=== PATIENT | female | born 1955 | race Caucasian/White ===

== ENCOUNTER → 2016-06-21 | Outpatient (CLI) | payer MEDICARE, MEDICAID ==
--- NOTE | 2016-06-21 12:22 | REPMRS ---
Patient History The patient states she had a clinical breast exam in Patient is postmenopausal. No known family history of cancer. Digital Woman Screen Mammo: June 21, 2016 - Exam #: [id number] Bilateral CC and MLO view(s) were taken. Technologist: Carolina Jensen, Technologist Prior study comparison: March 22, 2015, digital woman screen mammo performed at [facility] to [facility]. March 20, 2014, digital woman screen mammo performed at [facility] to [facility]. FINDINGS: There are scattered fibroglandular densities. There has been no change in the appearance of the mammogram from the prior studies. There is a mild amount of residual fibroglandular tissue which is fairly symmetric. There is no interval development of dominant mass, architectural distortion, or clustered microcalcification suggestive of malignancy. ASSESSMENT: BI-RADS/ACR category 1 mammogram. Negative. Recommendation Routine screening mammogram in 1 year (for women over age 40). This mammogram was interpreted with the aid of an FDA-approved computer-aided dectection system. Electronically Signed By: Enzo Reis MD 06/21/16 [id number]
== END ==
LOC: M WHC 10:34
PROVIDERS: ATTEND Nurse Practitioner Family
DX: Z12.31 Encounter for screening mammogram for malignant neoplasm of breast (principal); Z78.0 Asymptomatic menopausal state; Z12.11 Encounter for screening for malignant neoplasm of colon; Z12.4 Encounter for screening for malignant neoplasm of cervix
CPT/HCPCS: 82270; G0101; G0202

== ENCOUNTER 2016-11-28 09:04 | Outpatient (REF) | payer MEDICARE, MEDICAID | END 2016-11-29 | LOC: CANPREREF → M SFHCPLAZ 09:04 | PROVIDERS: ATTEND Family Medicine | DX: D64.9 Anemia, unspecified (principal); E78.5 Hyperlipidemia, unspecified ==

== ENCOUNTER → 2016-11-28 | Outpatient (REF) | payer MEDICARE, MEDICAID ==
[2016-11-30 10:12] LABS: TOPIRAMATE LEVEL 3.1 ug/mL (2.0-25.0)
== END ==
LOC: M LABDRAWP 12:06
PROVIDERS: ATTEND Physician Assistant Medical
DX: Z51.81 Encounter for therapeutic drug level monitoring (principal); Z79.899 Other long term (current) drug therapy; R56.9 Unspecified convulsions
CPT/HCPCS: 80175; 80299; G0463

== ENCOUNTER → 2017-05-30 | Outpatient (REF) | payer MEDICARE, MEDICAID | LOC: M SFHCADAM 09:29 | DX: F78 Other intellectual disabilities (principal); E78.5 Hyperlipidemia, unspecified; T50.905S Adverse effect of unspecified drugs, medicaments and biological substances, sequela; Z53.8 Procedure and treatment not carried out for other reasons ==

== ENCOUNTER → 2017-05-30 | Outpatient (CLI) | payer MEDICARE, MEDICAID | LOC: M ADAMS 09:36 | DX: M17.11 Unilateral primary osteoarthritis, right knee (principal) | CPT/HCPCS: 73560 ==

== ENCOUNTER → 2017-06-15 | Outpatient (CLI) | payer MEDICARE, MEDICAID ==
[2017-06-15 11:14] LABS: HEMATOCRIT 38.6 % (36.0-47.0); HEMOGLOBIN 12.6 g/dl (12.0-16.0); MEAN CORPUSCULAR HEMOGLOBIN 31.3 pg (27.0-33.0); MEAN CORPUSCULAR HGB CONC 32.6 g/dl (32.0-36.5); MEAN CORPUSCULAR VOLUME 95.8 fl (80.0-96.0); PLATELET COUNT, AUTOMATED 218 10^3/uL (150-450); RED BLOOD COUNT 4.03 10^6/uL (4.00-5.40); RED CELL DISTRIBUTION WIDTH 12.4 % (11.5-14.5); WHITE BLOOD COUNT 6.2 10^3/uL (4.0-10.0)
[2017-06-15 11:45] LABS: ALBUMIN/GLOBULIN RATIO 1.18 (1.00-1.93); ALKALINE PHOSPHATASE 104 U/L (45-117); ALT/SGPT 25 U/L (12-78); ANION GAP 6 MEQ/L (8-16); AST/SGOT 19 U/L (7-37); BILIRUBIN,TOTAL 0.7 MG/DL (0.2-1.0); BLOOD UREA NITROGEN 17 MG/DL (7-18); CALCIUM LEVEL 9.2 MG/DL (8.5-10.1); CARBON DIOXIDE LEVEL 30 MEQ/L (21-32); CHLORIDE LEVEL 106 MEQ/L (98-107); CHOLESTEROL LEVEL 181 MG/DL (<200); CHOLESTEROL RISK RATIO 3.067 (<5); CREATININE FOR GFR 0.67 MG/DL (0.55-1.30); FREE T4 0.93 NG/DL (0.76-1.46); GLOMERULAR FILTRATION RATE > 60.0 (>51); GLUCOSE, FASTING 83 MG/DL (70-100); HDL CHOLESTEROL 59 MG/DL (>40); LDL CHOLESTEROL 109.8 MG/DL (<100); NON-HDL-C 122 MG/DL; POTASSIUM SERUM 4.2 MEQ/L (3.5-5.1); SODIUM LEVEL 142 MEQ/L (136-145); TOTAL PROTEIN 7.4 GM/DL (6.4-8.2); TRIGLYCERIDES LEVEL 61 MG/DL (<150)
[2017-06-15 12:23] LABS: TOTAL 25(OH) VITAMIN D 45.4 NG/ML (30.0-100.0)
== END ==
LOC: M LAB 10:13
DX: F78 Other intellectual disabilities (principal); E78.5 Hyperlipidemia, unspecified; T50.905S Adverse effect of unspecified drugs, medicaments and biological substances, sequela; Z51.81 Encounter for therapeutic drug level monitoring; Z79.899 Other long term (current) drug therapy; R56.9 Unspecified convulsions
CPT/HCPCS: 84443

== ENCOUNTER → 2017-06-15 | Outpatient (CLI) | payer MEDICARE, MEDICAID ==
[2017-06-19 00:06] LABS: LAMOTRIGINE (LAMICTAL) 7.5 ug/mL (2.0-20.0)
== END ==
LOC: M LAB 10:16
DX: Z51.81 Encounter for therapeutic drug level monitoring (principal); Z79.899 Other long term (current) drug therapy; R56.9 Unspecified convulsions

== ENCOUNTER 2017-06-20 06:29 | Emergency (ER) | payer MEDICARE, MEDICAID ==
[2017-06-20] MEDS: ACETAMINOPHEN TAB 650MG DOSE (2X325MG) PO (07:43)
== END 2017-06-20 09:36 | disposition home or self-care (01) ==
LOC: M ED 06:29
DX: S70.02XA Contusion of left hip, initial encounter (principal); W18.30XA Fall on same level, unspecified, initial encounter; Y92.198 Other place in other specified residential institution as the place of occurrence of the external cause; R56.9 Unspecified convulsions; M19.90 Unspecified osteoarthritis, unspecified site; Z79.899 Other long term (current) drug therapy; Z91.018 Allergy to other foods
CPT/HCPCS: 73502

== ENCOUNTER 2017-07-16 08:38 | Outpatient (RCR) | payer MEDICARE, MEDICAID | END 2017-08-04 | LOC: M PT 08:38 | DX: Z51.89 Encounter for other specified aftercare (principal); M79.604 Pain in right leg; M25.561 Pain in right knee | CPT/HCPCS: 97110 ==

== ENCOUNTER → 2017-11-15 | Outpatient (REF) | payer MEDICARE, MEDICAID ==
[2017-11-23 13:33] LABS: LAMOTRIGINE (LAMICTAL) 17.9 ug/mL (2.0-20.0)
[2017-11-23 13:33] LABS: TOPIRAMATE LEVEL 3.5 ug/mL (2.0-25.0)
== END ==
LOC: M LABNEURO 14:07
DX: G40.909 Epilepsy, unspecified, not intractable, without status epilepticus (principal)
CPT/HCPCS: 36415

== ENCOUNTER → 2017-12-28 | Outpatient (CLI) | payer MEDICARE, MEDICAID | LOC: M WHC 10:22 | DX: Z12.31 Encounter for screening mammogram for malignant neoplasm of breast (principal) | CPT/HCPCS: 77067 ==

== ENCOUNTER → 2018-02-07 | Outpatient (CLI) | payer MEDICARE, MEDICAID ==
[2018-02-07 12:24] LABS: BASO # 0.1 10^3/uL (0.0-0.2); BASO % 0.7 % (0.0-1.0); EOS # 0.2 10^3/uL (0.0-0.50); EOS % 3.3 % (0.0-3.0); HEMATOCRIT 39.7 % (36.0-47.0); HEMOGLOBIN 12.8 g/dl (12.0-15.5); IMMATURE GRANULOCYTE % 0.3 % (0-3.0); LYMPH % 29.9 % (24.0-44.0); MEAN CORPUSCULAR HGB CONC 32.2 g/dl (32.0-36.5); MEAN CORPUSCULAR VOLUME 96.1 fl (80.0-96.0); MONO # 0.4 10^3/uL (0.0-0.8); MONO % 6.5 % (0.0-5.0); NEUTROPHILS % 59.3 % (36.0-66.0); PLATELET COUNT, AUTOMATED 222 10^3/uL (150-450); RED BLOOD COUNT 4.13 10^6/uL (4.00-5.40); RED CELL DISTRIBUTION WIDTH 12.6 % (11.5-14.5); WHITE BLOOD COUNT 6.8 10^3/uL (4.0-10.0)
[2018-02-07 14:09] LABS: ALBUMIN 3.9 GM/DL (3.2-5.2); ALBUMIN/GLOBULIN RATIO 1.08 (1.00-1.93); ALKALINE PHOSPHATASE 99 U/L (45-117); ALT/SGPT 17 U/L (12-78); ANION GAP 8 MEQ/L (8-16); AST/SGOT 11 U/L (7-37); BILIRUBIN,TOTAL 0.4 MG/DL (0.2-1.0); BLOOD UREA NITROGEN 24 MG/DL (7-18); CALCIUM LEVEL 9.3 MG/DL (8.8-10.2); CARBON DIOXIDE LEVEL 29 MEQ/L (21-32); CHLORIDE LEVEL 105 MEQ/L (98-107); CREATININE FOR GFR 0.67 MG/DL (0.55-1.30); GLOMERULAR FILTRATION RATE > 60.0 (>45); GLUCOSE, FASTING 82 MG/DL (70-100); POTASSIUM SERUM 4.5 MEQ/L (3.5-5.1); SODIUM LEVEL 142 MEQ/L (136-145); TOTAL PROTEIN 7.5 GM/DL (6.4-8.2); URIC ACID 4.7 MG/DL (2.6-6.0)
== END ==
LOC: M WUC 09:54
DX: M79.672 Pain in left foot (principal)
CPT/HCPCS: 84550

== ENCOUNTER → 2018-05-25 | Outpatient (CLI) | payer MEDICARE, MEDICAID ==
[~2018-05-25] MED LIST: CALTCHW4 PO; COLA100C5 PO; FERR325T3 PO; LAMO200T2 PO; MULT1TAB10 PO; NYST1POW9 TOP; TOPI50TA9 PO; VITA-122 PO; VITA500T88 PO
== END ==
LOC: M WUC 08:00
PROVIDERS: ATTEND Physician Assistant Medical
DX: R56.9 Unspecified convulsions (principal); Z51.81 Encounter for therapeutic drug level monitoring; Z79.899 Other long term (current) drug therapy; Z53.8 Procedure and treatment not carried out for other reasons

== ENCOUNTER → 2018-05-28 | Outpatient (CLI) | payer MEDICARE, MEDICAID ==
[2018-05-30 11:03] LABS: LAMOTRIGINE (LAMICTAL) 9.5 ug/mL (2.0-20.0); TOPIRAMATE LEVEL 3.6 ug/mL (2.0-25.0)
== END ==
LOC: M LAB 09:59
PROVIDERS: ATTEND Physician Assistant Medical
DX: R56.9 Unspecified convulsions (principal); Z51.81 Encounter for therapeutic drug level monitoring; Z79.899 Other long term (current) drug therapy

== ENCOUNTER → 2018-06-13 | Outpatient (REF) | payer MEDICARE, MEDICAID ==
[2018-06-13 13:01] LABS: HEMATOCRIT 41.3 % (36.0-47.0); HEMOGLOBIN 13.3 g/dl (12.0-15.5); MEAN CORPUSCULAR HEMOGLOBIN 31.2 pg (27.0-33.0); MEAN CORPUSCULAR HGB CONC 32.2 g/dl (32.0-36.5); MEAN CORPUSCULAR VOLUME 96.9 fl (80.0-96.0); PLATELET COUNT, AUTOMATED 219 10^3/uL (150-450); RED BLOOD COUNT 4.26 10^6/uL (4.00-5.40); WHITE BLOOD COUNT 6.8 10^3/uL (4.0-10.0)
[2018-06-13 13:40] LABS: ALT/SGPT 19 U/L (12-78); BILIRUBIN,TOTAL 0.4 MG/DL (0.2-1.0); BLOOD UREA NITROGEN 19 MG/DL (7-18); CALCIUM LEVEL 9.2 MG/DL (8.8-10.2); CARBON DIOXIDE LEVEL 26 MEQ/L (21-32); CHLORIDE LEVEL 107 MEQ/L (98-107); CHOLESTEROL LEVEL 200 MG/DL (<200); CHOLESTEROL RISK RATIO 3.773 (<5); CREATININE FOR GFR 0.66 MG/DL (0.55-1.30); FREE T4 0.87 NG/DL (0.76-1.46); GLOMERULAR FILTRATION RATE > 60.0 (>45); GLUCOSE, FASTING 87 MG/DL (70-100); HDL CHOLESTEROL 53 MG/DL (>40); LDL CHOLESTEROL 129 MG/DL (<100); NON-HDL-C 147 MG/DL; POTASSIUM SERUM 4.3 MEQ/L (3.5-5.1); SODIUM LEVEL 141 MEQ/L (136-145); TOTAL PROTEIN 7.5 GM/DL (6.4-8.2); TRIGLYCERIDES LEVEL 92 MG/DL (<150)
[2018-06-13 13:41] LABS: TOTAL 25(OH) VITAMIN D 41.8 NG/ML (30.0-100.0)
== END ==
LOC: M SFHCADAM 09:15
PROVIDERS: ATTEND Family Medicine
DX: E78.5 Hyperlipidemia, unspecified (principal); E55.9 Vitamin D deficiency, unspecified; Z79.899 Other long term (current) drug therapy
CPT/HCPCS: 80053; 80061; 82306; 84439; 84443; 85027; G0463

== ENCOUNTER → 2018-10-11 | Outpatient (CLI) | payer MEDICARE, MEDICAID ==
--- NOTE | 2018-10-11 14:20 | REP ---
REASON: Bilateral lower leg edema. PRIORS: None. ON THE RIGHT: No reflux was seen in the common femoral vein. An anterior accessory greater saphenous vein was not present. No reflux was seen in the greater saphenous vein at the saphenofemoral junction. The AP dimension of which measures 3.3 mm. No reflux was seen in any of the venous structures as follows. Greater saphenous vein at mid thigh the AP dimension of which 3.1 mm, greater saphenous vein at the knee the AP dimension of which measures 2.2 mm, all components of the superficial femoral vein, popliteal vein, and lesser saphenous vein the AP dimension of which measures 3.2 mm ON THE LEFT: No reflux was seen in the common femoral vein. An anterior accessory greater saphenous vein was present, however, no reflux was noted. No reflux was noted in any of the following venous structures; greater saphenous vein at the saphenofemoral function the AP dimension of which measures 4.2 mm, greater saphenous vein at the mid thigh the AP dimension of which measures 3.4 mm, greater saphenous vein at the knee the AP dimension of which measures 1.7 mm. All components of the superficial femoral vein, popliteal vein, and lesser saphenous vein the AP dimension of which measures 2.2 mm. IMPRESSION: No abnormal reflux noted. Measurements as described above. Electronically Signed by Michael Jenkins DO 10/11/2018 04:44 P
== END ==
LOC: M RAD 10:42
PROVIDERS: ATTEND Family Medicine
DX: R60.0 Localized edema (principal)

== ENCOUNTER → 2018-11-18 | Outpatient (REF) | payer MEDICARE, MEDICAID ==
[2018-11-20 00:06] LABS: LAMOTRIGINE (LAMICTAL) 9.9 ug/mL (2.0-20.0); TOPIRAMATE LEVEL 3.8 ug/mL (2.0-25.0)
== END ==
LOC: M LABNEURO 10:34
PROVIDERS: ATTEND Physician Assistant Medical
DX: R56.9 Unspecified convulsions (principal)

== ENCOUNTER → 2019-02-28 | Outpatient (CLI) | payer MEDICARE, MEDICAID ==
[2019-02-28 11:28] LABS: ALBUMIN 3.6 GM/DL (3.2-5.2); ALT/SGPT 16 U/L (12-78); BILIRUBIN,TOTAL 0.4 MG/DL (0.2-1.0); BLOOD UREA NITROGEN 19 MG/DL (7-18); CALCIUM LEVEL 9.2 MG/DL (8.8-10.2); CARBON DIOXIDE LEVEL 26 MEQ/L (21-32); CHLORIDE LEVEL 108 MEQ/L (98-107); CREATININE FOR GFR 0.75 MG/DL (0.55-1.30); GLOMERULAR FILTRATION RATE > 60.0 (>45); GLUCOSE, FASTING 102 MG/DL (70-100); NT-PRO BNP 77 PG/ML (<125); POTASSIUM SERUM 4.7 MEQ/L (3.5-5.1); SODIUM LEVEL 141 MEQ/L (136-145); TOTAL PROTEIN 7.6 GM/DL (6.4-8.2)
== END ==
LOC: M LAB 10:08
PROVIDERS: ATTEND Family Medicine
DX: I10 Essential (primary) hypertension (principal)

== ENCOUNTER → 2019-05-05 | Outpatient (CLI) | payer MEDICARE, MEDICAID ==
[~2019-05-05] MED LIST changes: -LAMO200T2 PO; +LAMO200T3 PO
--- NOTE | 2019-05-05 17:04 | REP ---
Two-view chest: 05/05/2019. Indication: Cough. Comparison: 04/01/2009. Findings: Poor inspiratory result is present. Borderline cardiomegaly is noted. Significant degenerative sequelae of the thoracic spine are present. No definite focal airspace consolidation is detected. There is no definite pleural effusion or pneumothorax. Bilateral glenohumeral degenerative sequelae are present. Impression: Poor inspiratory result without definite air space consolidation. Electronically Signed by Eliazar Yeager DO 05/05/2019 04:55 P
== END ==
LOC: M ADAMS 16:30
PROVIDERS: ATTEND Physician Assistant Medical
DX: M51.34 Other intervertebral disc degeneration, thoracic region (principal); R05 Cough
CPT/HCPCS: 71046; G0463

== ENCOUNTER → 2019-06-28 | Outpatient (CLI) | payer MEDICARE, MEDICAID ==
[2019-06-28 09:36] LABS: HEMATOCRIT 38.4 % (36.0-47.0); HEMOGLOBIN 12.5 g/dl (12.0-15.5); MEAN CORPUSCULAR HEMOGLOBIN 31.6 pg (27.0-33.0); MEAN CORPUSCULAR HGB CONC 32.6 g/dl (32.0-36.5); PLATELET COUNT, AUTOMATED 222 10^3/uL (150-450); RED BLOOD COUNT 3.96 10^6/uL (4.00-5.40); WHITE BLOOD COUNT 6.1 10^3/uL (4.0-10.0)
[2019-06-28 10:23] LABS: ALBUMIN 3.9 GM/DL (3.2-5.2); ALT/SGPT 21 U/L (12-78); BILIRUBIN,TOTAL 0.3 MG/DL (0.2-1.0); BLOOD UREA NITROGEN 18 MG/DL (7-18); CALCIUM LEVEL 9.4 MG/DL (8.8-10.2); CARBON DIOXIDE LEVEL 28 MEQ/L (21-32); CHLORIDE LEVEL 108 MEQ/L (98-107); CHOLESTEROL LEVEL 198 MG/DL (<200); CHOLESTEROL RISK RATIO 3.473 (<5); CREATININE FOR GFR 0.67 MG/DL (0.55-1.30); GLOMERULAR FILTRATION RATE > 60.0 (>45); GLUCOSE, FASTING 84 MG/DL (70-100); HDL CHOLESTEROL 57 MG/DL (>40); IRON (FE) 55 UG/DL (50-170); LDL CHOLESTEROL 127 MG/DL (<100); NON-HDL-C 141 MG/DL; PERCENT SATURATION 18.5 % (13.2-45.0); POTASSIUM SERUM 4.2 MEQ/L (3.5-5.1); SODIUM LEVEL 140 MEQ/L (136-145); TOTAL IRON BINDING CAPACITY 298 UG/DL (250-450); TOTAL PROTEIN 7.4 GM/DL (6.4-8.2); TRIGLYCERIDES LEVEL 70 MG/DL (<150)
[2019-06-28 10:48] LABS: FERRITIN 137 NG/ML (8-252)
== END ==
LOC: M LAB 08:57
PROVIDERS: ATTEND Family Medicine
DX: I11.9 Hypertensive heart disease without heart failure (principal); R21 Rash and other nonspecific skin eruption; D50.9 Iron deficiency anemia, unspecified; E78.5 Hyperlipidemia, unspecified

== ENCOUNTER → 2019-11-14 | Outpatient (CLI) | payer MEDICARE, MEDICAID ==
[2019-11-19 16:22] LABS: LAMOTRIGINE (LAMICTAL) 11.8 ug/mL (2.0-20.0); TOPIRAMATE LEVEL 3.7 ug/mL (2.0-25.0)
== END ==
LOC: M WUC 13:34
PROVIDERS: ATTEND Physician Assistant Medical
DX: G40.89 Other seizures (principal)

== ENCOUNTER → 2020-06-26 | Outpatient (CLI) | payer MEDICARE, MEDICAID ==
[2020-06-26 14:53] LABS: BASO % 0.7 % (0.0-1.0); EOS # 0.3 10^3/uL (0.0-0.5); EOS % 4.2 % (0.0-3.0); HEMATOCRIT 38.5 % (36.0-47.0); HEMOGLOBIN 11.9 g/dl (12.0-15.5); LYMPH # 1.9 10^3/uL (1.5-5.0); LYMPH % 30.6 % (24.0-44.0); MEAN CORPUSCULAR HEMOGLOBIN 30.1 pg (27.0-33.0); MEAN CORPUSCULAR HGB CONC 30.9 g/dl (32.0-36.5); MEAN CORPUSCULAR VOLUME 97.2 fl (80.0-96.0); MONO # 0.4 10^3/uL (0.0-0.8); MONO % 6.5 % (2.0-8.0); NEUTROPHILS # 3.6 10^3/uL (1.5-8.5); NEUTROPHILS % 57.8 % (36.0-66.0); PLATELET COUNT, AUTOMATED 193 10^3/uL (150-450); RED BLOOD COUNT 3.96 10^6/uL (4.00-5.40); WHITE BLOOD COUNT 6.2 10^3/uL (4.0-10.0)
[2020-06-26 15:22] LABS: ALBUMIN 3.6 GM/DL (3.2-5.2); ALT/SGPT 18 U/L (12-78); BILIRUBIN,TOTAL 0.2 MG/DL (0.2-1.0); BLOOD UREA NITROGEN 17 MG/DL (7-18); CALCIUM LEVEL 8.8 MG/DL (8.8-10.2); CARBON DIOXIDE LEVEL 28 MEQ/L (21-32); CHLORIDE LEVEL 107 MEQ/L (98-107); CREATININE FOR GFR 0.69 MG/DL (0.55-1.30); GLOMERULAR FILTRATION RATE > 60.0 (>45); GLUCOSE, FASTING 95 MG/DL (70-100); POTASSIUM SERUM 4.7 MEQ/L (3.5-5.1); SODIUM LEVEL 143 MEQ/L (136-145); TOTAL PROTEIN 7.5 GM/DL (6.4-8.2)
== END ==
LOC: M LAB 14:02
PROVIDERS: ATTEND Physician Assistant Medical
DX: Z51.81 Encounter for therapeutic drug level monitoring (principal); R56.9 Unspecified convulsions; Z79.899 Other long term (current) drug therapy

== ENCOUNTER 2020-10-26 19:37 | Inpatient (IN) | payer MEDICARE, MEDICAID ==
[~2020-10-26] VITALS: Ht 149.9 cm; Wt 102.2 kg
[2020-10-26 20:45] LABS: HEMATOCRIT 36.5 % (36.0-47.0); HEMOGLOBIN 11.6 g/dl (12.0-15.5); MEAN CORPUSCULAR HEMOGLOBIN 30.4 pg (27.0-33.0); MEAN CORPUSCULAR HGB CONC 31.8 g/dl (32.0-36.5); MEAN CORPUSCULAR VOLUME 95.5 fl (80.0-96.0); PLATELET COUNT, AUTOMATED 180 10^3/uL (150-450); RED BLOOD COUNT 3.82 10^6/uL (4.00-5.40); WHITE BLOOD COUNT 9.8 10^3/uL (4.0-10.0)
[2020-10-26] MEDS ORDERED: NS 1,000 ML IV ONE (20:50)
[2020-10-26] MEDS ORDERED: ACETAMINOPHEN TAB 650MG DOSE (2X325MG) PO ONE (20:50)
[2020-10-26] MEDS ORDERED: IBUPROFEN 800 MG TAB PO ONE (20:55)
[2020-10-26 20:58] LABS: INR 0.95; PROTHROMBIN TIME 12.9 SECONDS (12.5-14.3)
[2020-10-26 20:59] LABS: PARTIAL THROMBOPLASTIN TIME 20.7 SECONDS (24.2-38.5)
[2020-10-26] MEDS ORDERED: NS 1,800 ML in IV 1 EA IV ONE (21:05)
--- NOTE | 2020-10-26 21:06 | REPVR ---
PROCEDURE INFORMATION: Exam: XR Chest Exam date and time: 10/26/2020 8:20 PM Age: 64 years old Clinical indication: Other: Sepsis; Additional info: Sepsis/shock TECHNIQUE: Imaging protocol: XR of the chest. Views: 1 view. COMPARISON: IA CHEST 2 VIEW 05/05/2019 4:19 PM FINDINGS: Lungs: Unremarkable. No consolidation. Pleural spaces: Unremarkable. No pleural effusion. No pneumothorax. Heart/Mediastinum: Unremarkable. No cardiomegaly. Bones/joints: The spine demonstrates moderate degenerative changes. Arthropathic changes both shoulder joints. IMPRESSION: No acute findings. Electronically signed by: Javier Dillard On 10/26/2020 21:06:23 PM
[2020-10-26 21:12] LABS: BASOPHILS 1 % (0-1); LYMPHOCYTES 4 % (16-44); MONOCYTES 4 % (0-5); NEUTROPHILS 90 % (28-66); PLATELET ESTIMATE NORMAL (NORMAL)
[2020-10-27 00:23] LABS: ALBUMIN 2.7 GM/DL (3.2-5.2); ALT/SGPT 11 U/L (12-78); AMYLASE 40 U/L (25-115); BILIRUBIN,DIRECT 0.1 MG/DL (0.0-0.2); BILIRUBIN,TOTAL 0.5 MG/DL (0.2-1.0); BLOOD UREA NITROGEN 31 MG/DL (7-18); C REACTIVE PROTEIN QUANTITATIV 9.76 MG/DL (0.00-0.30); CALCIUM LEVEL 8.5 MG/DL (8.8-10.2); CARBON DIOXIDE LEVEL 24 MEQ/L (21-32); CHLORIDE LEVEL 108 MEQ/L (98-107); CK-MB VALUE MASS < 1.0 NG/ML (<3.6); CPK CREATINE PHOSPHOKINASE 45 U/L (26-192); CREATININE FOR GFR 0.82 MG/DL (0.55-1.30); GLOMERULAR FILTRATION RATE > 60.0 (>45); GLUCOSE, FASTING 113 MG/DL (70-100); MB/CK RELATIVE INDEX 2.22 (< OR =4); POTASSIUM SERUM 3.8 MEQ/L (3.5-5.1); SODIUM LEVEL 139 MEQ/L (136-145); TOTAL PROTEIN 5.7 GM/DL (6.4-8.2); TROPONIN I < 0.02 NG/ML (< 0.10)
[2020-10-27] MEDS ORDERED: CIPROFLOXACIN 400 MG in IV 1 EA IV ONE (01:10)
--- NOTE | 2020-10-27 02:00 | REPVR ---
PROCEDURE INFORMATION: Exam: CT Abdomen And Pelvis Without Contrast Exam date and time: 10/27/2020 12:27 AM Age: 64 years old Clinical indication: Abdominal pain; Flank; Right; Additional info: UTI, right sided flank pain, eval for stone TECHNIQUE: Imaging protocol: Computed tomography of the abdomen and pelvis without contrast. Radiation optimization: All CT scans at this facility use at least one of these dose optimization techniques: automated exposure control; mA and/or kV adjustment per patient size (includes targeted exams where dose is matched to clinical indication); or iterative reconstruction. COMPARISON: 1. ME Hip,AP,LAT to include Pelvis 06/20/2017 7:19 AM 2. US PELVIC NON-OB COMPLETE 06/27/2015 10:49 PM FINDINGS: Lungs: Minimal patchy bilateral ground-glass pulmonary infiltrates and scattered fibro-atelectatic change. Liver: Normal. No mass. Gallbladder and bile ducts: Cholelithiasis with stones measuring up to 2.2 cm. Pancreas: Normal. No ductal dilation. Spleen: Normal. No splenomegaly. Adrenal glands: Minimal calcifications are noted in the right adrenal. Kidneys and ureters: Nonobstructing bilateral renal calculi measuring up to 15 mm on the left. No right hydronephrosis. There is question of mild left hydronephrosis and left hydroureter. A definite calculus is not seen. There are some calcifications in the pelvis thought to reflect phleboliths. Stomach and bowel: Unremarkable. No obstruction. No mucosal thickening. Appendix: A normal appendix is seen. Intraperitoneal space: Unremarkable. No free air. No significant fluid collection. Retroperitoneal space: Left retroperitoneal edema with thickening of the left retroperitoneal fascia within the pelvis. There is also some presacral soft tissue confluence of uncertain etiology. Vasculature: There is mild calcification of the abdominal aorta with extension into the iliac arteries. Lymph nodes: Unremarkable. No enlarged lymph nodes. Urinary bladder: Unremarkable as visualized. Reproductive: Status post hysterectomy. Bones/joints: Facet arthropathy of the lower lumbar spine with anterolisthesis of L4 relative to L5. Soft tissues: Unremarkable. IMPRESSION: 1. Minimal patchy bilateral ground-glass pulmonary infiltrates with scattered fibro-atelectatic change. 2. Cholelithiasis. 3. Nonobstructing bilateral renal calculi. 4. Status post hysterectomy. 5. Mild left retroperitoneal edema with question of mild left obstructive uropathy which extends into the pelvis. No definite ureteral calculus is identified. 6. No right obstructive uropathy or ureteral calculus is seen. Electronically signed by: Joce Hidalgo On 10/27/2020 01:59:23 AM
[2020-10-27] MEDS ORDERED: MAALOX 30 ML SUSP *UDC PO PRN (04:50)
[2020-10-27] MEDS ORDERED: MOM 30ML SUSPENSION UDC PO PRN (04:50)
[2020-10-27] MEDS ORDERED: IBUPROFEN 800 MG TAB PO PRN (04:50)
[2020-10-27] MEDS ORDERED: ACETAMINOPHEN TAB 650MG DOSE (2X325MG) PO PRN (04:50)
[2020-10-27] MEDS ORDERED: NS 1,000 ML IV SCH (04:50)
--- NOTE | 2020-10-27 05:28 | HPEPDOC ---
[facility] Medical History & Physical Date of Admission Oct 27, 2020 Date of Service: Oct 27, 2020 Attending Physician: FREDERICK AZEVEDO MD History and Physical CHIEF COMPLAINT: [64 y/o female with cc of right sided abd pain for "a couple weeks"] HISTORY OF PRESENT ILLNESS: [Patient is a poor historian. This is a 64 y/o female resident of [facility] with a pmh of intellectual disability, htn, epilepsy, o besity who presented to our ED via EMS after being noted to have fevers and complaining of abdominal pain. Patient states that she has been experiencing pain on the right side of her abdomen. Patient is unsure if the pain radiates. Patient states that she has also had difficulty with urination for "a couple weeks" as well, however denies dysuria. Patient also complains of some constipation, stating that her last bm was 2 days ago. Patient at the time of my exam denies fevers, chills, chest pain, sob, n/v/d, hematuria.] PAST MEDICAL HISTORY: 1. [See HPI PAST SURGICAL HISTORY: 1. [Unspecified left knee surgery SOCIAL HISTORY: Tobacco use:[Denies] ETOH: [Denies] Illicit drug use: [Denies] FAMILY HISTORY: Reviewed - none pertinent ALLERGIES: Please see below. REVIEW OF SYSTEMS: CONSTITUTIONAL: [See HPI]. HEENT: [Denies uri sx]. CARDIOVASCULAR: [See HPI]. RESPIRATORY: [See HPI]. GASTROINTESTINAL: [SEe HPI]. GENITOURINARY: [See HPI]. SKIN: [Denies rash]. MUSCULOSKELETAL: [Denies acute joint/back pain]. NEUROLOGICAL: [Denies headache, dizziness, syncope]. ENDOCRINE: [No hx of DM]. HEMATOLOGIC/LYMPHATIC: [Denies easy bruising]. HOME MEDICATIONS: Please see below. PHYSICAL EXAMINATION: VITAL SIGNS: Please see below GENERAL APPEARANCE: [This is an obese appearing 64 y/o female. She does not appear to be in any respiratory distress]. HEENT: [No mass or lesion. EOMI. No scleral icterus. Oral mucosa dry.]. CARDIOVASCULAR: [Regular rate, rhythm. No murmurs, rubs, gallops]. LUNGS: [Good air flow b/l. No wheezing, rales, rhonchi.]. ABDOMEN: [Obese, nontender. +BS]. MUSCULOSKELETAL: [No joint deformity]. EXTREMITIES: [Trace edema to b/l lower extremities. No overlying skin changes. Pulses intact]. NEUROLOGICAL: [Speech clear but rambling at times. A+Ox3. No focal deficits]. PSYCHIATRIC: [Mood and affect appear appropriate.]. LABORATORY DATA: See below. IMAGING: [CXR: FINDINGS: Lungs: Unremarkable. No consolidation. Pleural spaces: Unremarkable. No pleural effusion. No pneumothorax. Heart/Mediastinum: Unremarkable. No cardiomegaly. Bones/joints: The spine demonstrates moderate degenerative changes. Arthropathic changes both shoulder joints. IMPRESSION: No acute findings. CT Abd/pelvis: FINDINGS: Lungs: Minimal patchy bilateral ground-glass pulmonary infiltrates and scattered fibro-atelectatic change. Liver: Normal. No mass. Gallbladder and bile ducts: Cholelithiasis with stones measuring up to 2.2 cm. Pancreas: Normal. No ductal dilation. Spleen: Normal. No splenomegaly. Adrenal glands: Minimal calcifications are noted in the right adrenal. Kidneys and ureters: Nonobstructing bilateral renal calculi measuring up to 15 mm on the left. No right hydronephrosis. There is question of mild left hydronephrosis and left hydroureter. A definite calculus is not seen. There are some calcifications in the pelvis thought to reflect phleboliths. Stomach and bowel: Unremarkable. No obstruction. No mucosal thickening. Appendix: A normal appendix is seen. Intraperitoneal space: Unremarkable. No free air. No significant fluid collection. Retroperitoneal space: Left retroperitoneal edema with thickening of the left retroperitoneal fascia within the pelvis. There is also some presacral soft tissue confluence of uncertain etiology. Vasculature: There is mild calcification of the abdominal aorta with extension into the iliac arteries. Lymph nodes: Unremarkable. No enlarged lymph nodes. Urinary bladder: Unremarkable as visualized. Reproductive: Status post hysterectomy. Bones/joints: Facet arthropathy of the lower lumbar spine with anterolisthesis of L4 relative to L5. Soft tissues: Unremarkable. IMPRESSION: 1. Minimal patchy bilateral ground-glass pulmonary infiltrates with scattered fibro-atelectatic change. 2. Cholelithiasis. 3. Nonobstructing bilateral renal calculi. 4. Status post hysterectomy. 5. Mild left retroperitoneal edema with question of mild left obstructive uropathy which extends into the pelvis. No definite ureteral calculus is identified. 6. No right obstructive uropathy or ureteral calculus is seen. ] MICROBIOLOGY: Please see below. ASSESSMENT: [This is a 64 y/o female resident of [facility] with a pmh of intellectual disability, htn, epilepsy, obesity who presented to our ED via EMS after being noted to have fevers and complaining of abdominal pain. Patient found to have 2/4 sirs criteria with tachycardia and fever as well as +ua upon workup in the ED.]. . PLAN: 1. [SIRS 2/2 uti vs. pyelo - Patient had fever of 103.7, tachycardia of 125 upon presentation to the ED. Patient's urinalysis also came back grossly positive. - Patient received roughly 3L fluid bolus and one dose of cipro in the ED - Will continue IVF on the floor - Cipro bid - tylenol for mild pain, advil for mod pain - Admit to med surg for tx 2. Epilepsy - continue lamictal, topamax DVT prophylaxis - Lovenox ordered]. Vital Signs Vital Signs Date Time Temp Pulse Resp B/P (MAP) Pulse Ox O2 Delivery O2 Flow Rate FiO2 10/27/20 04:24 120/57 (78) 10/27/20 04:16 81 94 10/27/20 01:00 99.5 10/26/20 22:01 20 Room Air Laboratory Data Labs 24H Laboratory Tests 2 10/26/20 19:58: Neutrophils (%) (Auto) , Nucleated Red Blood Cells % (auto) 0.0, Neutrophils 90H, Band Neutrophils 1, Lymphocytes (Manual) 4L, Monocytes (Manual) 4, Basophils (Manual) 1, Red Blood Cell Morphology NORMAL, Platelet Estimate NORMAL, Prothrombin Time 12.9, Prothromb Time International Ratio 0.95, Activated Partial Thromboplast Time 20.7L, Urine Color YELLOW, Urine Appearance CLOUDYH, Urine pH 5.0, Urine Specific [place] 1.016, Urine Protein 3+H, Urine Glucose (UA) NEGATIVE, Urine Ketones TRACEH, Urine Blood 2+H, Urine Nitrite NEGATIVE, Urine Bilirubin NEGATIVE, Urine Urobilinogen 0.2, Urine Leukocyte Esterase 3+H, Urine WBC (Auto) TNTCH, Urine RBC (Auto) 52H, Urine Hyaline Casts (Auto) 0, Urine Bacteria (Auto) 2+H, Urine Squamous Epithelial Cells 0, Urine Mucus (Auto) SMALL, Urine Sperm (Auto) , Lactic Acid Level 1.1 10/26/20 23:38: Anion Gap 7L, Glomerular Filtration Rate > 60.0, Calcium Level 8.5L, Total Bilirubin 0.5, Direct Bilirubin 0.1, Aspartate Amino Transf (AST/SGOT) 7, Alanine Aminotransferase (ALT/SGPT) 11L, Alkaline Phosphatase 82, Total Creatine Kinase 45, Creatine Kinase MB < 1.0, Creatine Kinase MB Relative Index 2.22, Troponin I < 0.02, C-Reactive Protein, Quantitative 9.76H, Total Protein 5.7L, Albumin 2.7L, Albumin/Globulin Ratio 0.9L, Amylase Level 40 CBC/BMP Laboratory Tests 10/26/20 19:58 10/26/20 23:38 Microbiology Microbiology 10/26/20 Respiratory Virus Panel (PCR) (FELECIA) - Final, Complete 10/26/20 Blood Culture, Received Pending 10/26/20 Urine Culture, Received Pending 10/26/20 Blood Culture, Received Pending Home Medications Scheduled Ascorbic Acid (Vitamin C) 500 Mg Tab, 500 MG PO DAILY Calcium Carbonate/Vitamin D3 (Calcium 600-Vit D3 400 Tablet) 1 Each Tablet, 1 TAB PO BID Cholecalciferol (Vitamin D3) (Vitamin D3) 1,000 Unit Tablet, 1,000 UNITS PO DAILY Docusate Sodium (Colace) 100 Mg Cap, 100 MG PO DAILY Ferrous Sulfate (Ferrous Sulfate) 325 Mg Tab, 325 MG PO QHS Lamotrigine (Lamotrigine) 200 Mg Tab, 200 MG PO BID Nystatin (Nystatin Powder) 15 Gm Powder, 1 DOSE TOP BID APPLY TO SKIN FOLDS Topiramate (Topiramate) 50 Mg Tab, 50 MG PO BID Scheduled PRN Acetaminophen (Tylenol) 325 Mg Tablet, 650 MG PO Q4H PRN for PAIN LEVEL 1-5 Allergies Coded Allergies: strawberry (Verified Allergy, Unknown, 10/26/20) tomato (Verified Allergy, Unknown, 10/26/20) A-FIB/CHADSVASC A-FIB History Current/History of A-Fib/PAF?: No BONIFACIO HERRON Oct 27, 2020 05:28
[2020-10-27] MEDS ORDERED: NYST1POW9 TOP (05:52)
[2020-10-27] MEDS ORDERED: ACET-907 PO (05:52)
[2020-10-27] MEDS ORDERED: D31000TA2 PO (05:52)
[2020-10-27] MEDS ORDERED: CALC1TAB63 PO (05:52)
[2020-10-27] MEDS: ENOXAPARIN 40MG/0.4ML SYRINGE (J1650 PER 10MG) SC SCH (09:03)
[2020-10-27] MEDS: DOCUSATE SODIUM 100MG CAPSULE PO SCH ×2 (09:03→20:55)
[2020-10-27] MEDS: TOPIRAMATE (TopAMAX) 25 MG TAB PO SCH ×2 (09:03→20:55)
[2020-10-27] MEDS: lamoTRIgine 100MG TAB PO SCH ×2 (09:03→20:55)
[2020-10-27] MEDS: NYSTATIN 100,000 UNITS/GM TOPICAL PWD 15 GM TOP SCH ×2 (09:03→23:07)
[2020-10-27] MEDS: CIPROFLOXACIN 400 MG in IV 1 EA IV SCH (13:01)
[2020-10-27 14:30] VITALS: BP 168/88
[2020-10-27] MEDS: FERROUS SULFATE 325MG TAB PO SCH (20:55)
[2020-10-27 21:00] VITALS: BP 148/84
[2020-10-28] MEDS: CIPROFLOXACIN 400 MG in IV 1 EA IV SCH ×2 (01:49→13:58)
[2020-10-28 06:00] VITALS: BP 142/76
--- NOTE | 2020-10-28 07:09 | ECGEPIP ---
[facility] - ED Test Date: 2020-10-26 Pat Name: KENDRA MALDONADO Department: Room: [place] [address] Gender: Female Service Counselor: MARILIA : 1955 Requested By: SU Crawford Order Number: [id number] Reading MD: Brian Nye Measurements Intervals [place] Rate: 105 P: 43 MD: 150 QRS: -5 QRSD: 92 T: 25 QT: 302 QTc: 399 Interpretive Statements Sinus tachycardia Moderate voltage criteria for LVH, may be normal variant ( R in aVL , Bertram product ) Cannot rule out Anterior infarct , age undetermined NO PRIORS FOR COMPARISON Electronically Signed on 10-28-2020 7:09:30 EDT by Brian Nye
[2020-10-28] MEDS: DOCUSATE SODIUM 100MG CAPSULE PO SCH ×2 (09:52→21:40)
[2020-10-28] MEDS: ENOXAPARIN 40MG/0.4ML SYRINGE (J1650 PER 10MG) SC SCH (09:52)
[2020-10-28] MEDS: lamoTRIgine 100MG TAB PO SCH ×2 (09:52→21:40)
[2020-10-28] MEDS: NYSTATIN 100,000 UNITS/GM TOPICAL PWD 15 GM TOP SCH ×2 (09:52→21:41)
[2020-10-28] MEDS: TOPIRAMATE (TopAMAX) 25 MG TAB PO SCH ×2 (09:52→21:40)
--- NOTE | 2020-10-28 12:07 | IPNPDOC ---
Subjective Date Seen The patient was seen on 10/28/20. Subjective Chief Complaint/HPI Had another spike of fever last night with T max of 101.5. She is comfortable this morning. Denies any abdominal pain or back pain. She wants to go home. Objective Physical Examination General Exam: Positive: Alert, Cooperative, No Acute Distress Eye Exam: Positive: PERRLA, Conjunctiva & lids normal, EOMI; Negative: Sclera icteric ENT Exam: Positive: Atraumatic, Mucous membr. moist/pink, Pharynx Normal Neck Exam: Positive: Supple; Negative: JVD, thyromegaly Chest Exam: Positive: Clear to auscultation, Normal air movement Heart Exam: Positive: Rate Normal, Regular Rhythm, Normal S1, Normal S2; Negative: Murmurs, Rubs Abdomen Exam: Positive: Normal bowel sounds, Soft; Negative: Tenderness, Hepatospenomegaly Extremity Exam: Positive: Edema; Negative: Clubbing, Cyanosis Assessment /Plan Assessment This is a 64 y/o female resident of [facility] with a pmh of intellectual disability, htn, epilepsy, Morbid obesity with BMI of 45.5 who presented to our ED via EMS after being noted to have fevers and complaining of abdominal pain and left back pain. Ct abdomen was suggestive of left pyelonephritis. Pyelonephritis urine culture pening. continue on ciprofloxacin Epilepsy continue lamictal, topamax Morbid obesity with BMI of 45.5 She is non ambulatory and is shivam lift. She does sit in the chair all day. Plan/VTE VTE Prophylaxis Ordered?: Yes VS, I&O, 24H, Fishbone Vital Signs/I&O Vital Signs Date Time Temp Pulse Resp B/P (MAP) Pulse Ox O2 Delivery O2 Flow Rate FiO2 10/28/20 06:00 97.6 90 18 142/76 (98) 96 Room Air I&O- Last 24 Hours up to 6 AM 10/28/20 06:00 Intake Total 1350 ml Output Total 1250 ml Balance 100 ml Laboratory Data Microbiology Microbiology 10/26/20 Respiratory Virus Panel (PCR) (FELECIA) - Final, Complete 10/26/20 Blood Culture - Preliminary, Resulted No growth after 24 hours . All specim... 10/26/20 Urine Culture, Received Pending 10/26/20 Blood Culture - Preliminary, Resulted No growth after 24 hours . All specim... CHAPIS CLEVELAND MD 24, 2021 12:07
[2020-10-28 14:00] VITALS: BP 158/81
[2020-10-28 14:36] LABS: ALBUMIN 2.7 GM/DL (3.2-5.2); ALT/SGPT 14 U/L (12-78); BILIRUBIN,TOTAL 0.4 MG/DL (0.2-1.0); BLOOD UREA NITROGEN 19 MG/DL (7-18); CARBON DIOXIDE LEVEL 23 MEQ/L (21-32); CHLORIDE LEVEL 112 MEQ/L (98-107); CREATININE FOR GFR 0.51 MG/DL (0.55-1.30); GLOMERULAR FILTRATION RATE > 60.0 (>45); GLUCOSE, FASTING 107 MG/DL (70-100); POTASSIUM SERUM 3.4 MEQ/L (3.5-5.1); SODIUM LEVEL 142 MEQ/L (136-145); TOTAL PROTEIN 6.8 GM/DL (6.4-8.2)
[2020-10-28] MEDS: FERROUS SULFATE 325MG TAB PO SCH (21:40)
[2020-10-28 22:00] VITALS: BP 147/75
[2020-10-29] MEDS: CIPROFLOXACIN 400 MG in IV 1 EA IV SCH ×2 (01:36→12:28)
[2020-10-29 06:00] VITALS: BP 114/66
[2020-10-29 06:13] LABS: BASO % 0.6 % (0.0-1.0); EOS # 0.2 10^3/uL (0.0-0.5); EOS % 3.1 % (0.0-3.0); HEMOGLOBIN 9.7 g/dl (12.0-15.5); LYMPH # 1.7 10^3/uL (1.5-5.0); LYMPH % 24.1 % (24.0-44.0); MEAN CORPUSCULAR HEMOGLOBIN 29.8 pg (27.0-33.0); MEAN CORPUSCULAR HGB CONC 31.3 g/dl (32.0-36.5); MEAN CORPUSCULAR VOLUME 95.4 fl (80.0-96.0); MONO # 0.8 10^3/uL (0.0-0.8); MONO % 10.7 % (2.0-8.0); NEUTROPHILS # 4.4 10^3/uL (1.5-8.5); NEUTROPHILS % 60.9 % (36.0-66.0); PLATELET COUNT, AUTOMATED 198 10^3/uL (150-450); RED BLOOD COUNT 3.25 10^6/uL (4.00-5.40); WHITE BLOOD COUNT 7.1 10^3/uL (4.0-10.0)
[2020-10-29 06:34] LABS: BLOOD UREA NITROGEN 20 MG/DL (7-18); CALCIUM LEVEL 8.5 MG/DL (8.8-10.2); CARBON DIOXIDE LEVEL 25 MEQ/L (21-32); CHLORIDE LEVEL 112 MEQ/L (98-107); CREATININE FOR GFR 0.62 MG/DL (0.55-1.30); GLOMERULAR FILTRATION RATE > 60.0 (>45); GLUCOSE, FASTING 94 MG/DL (70-100); POTASSIUM SERUM 3.6 MEQ/L (3.5-5.1); SODIUM LEVEL 142 MEQ/L (136-145)
[2020-10-29] MEDS: TOPIRAMATE (TopAMAX) 25 MG TAB PO SCH ×2 (09:08→20:33)
[2020-10-29] MEDS: DOCUSATE SODIUM 100MG CAPSULE PO SCH ×2 (09:08→20:33)
[2020-10-29] MEDS: lamoTRIgine 100MG TAB PO SCH ×2 (09:08→20:33)
[2020-10-29] MEDS: ENOXAPARIN 40MG/0.4ML SYRINGE (J1650 PER 10MG) SC SCH (09:09)
[2020-10-29] MEDS: NYSTATIN 100,000 UNITS/GM TOPICAL PWD 15 GM TOP SCH ×2 (09:09→20:34)
[2020-10-29 14:00] VITALS: BP 148/83
[2020-10-29] MEDS ORDERED: TORSEMIDE 20 MG TAB PO ONE (14:00)
--- NOTE | 2020-10-29 16:37 | IPNPDOC ---
Subjective Date Seen The patient was seen on 10/29/20. Subjective Chief Complaint/HPI No fever overnight. Feeling well. Objective Physical Examination General Exam: Positive: Alert, Cooperative, No Acute Distress Eye Exam: Positive: PERRLA, Conjunctiva & lids normal, EOMI; Negative: Sclera icteric ENT Exam: Positive: Atraumatic, Mucous membr. moist/pink, Pharynx Normal Neck Exam: Positive: Supple; Negative: JVD, thyromegaly Chest Exam: Positive: Clear to auscultation, Normal air movement Heart Exam: Positive: Rate Normal, Regular Rhythm, Normal S1, Normal S2; Negative: Murmurs, Rubs Abdomen Exam: Positive: Normal bowel sounds, Soft; Negative: Tenderness, Hepatospenomegaly Extremity Exam: Positive: Edema; Negative: Clubbing, Cyanosis Assessment /Plan Assessment This is a 64 y/o female resident of [facility] with a pmh of intellectual disability, htn, epilepsy, Morbid obesity with BMI of 45.5 who presented to our ED via EMS after being noted to have fevers and complaining of abdominal pain and left back pain. Ct abdomen was suggestive of left pyelonephritis. Pyelonephritis urine culture pending. continue on ciprofloxacin Epilepsy continue lamictal, topamax Morbid obesity with BMI of 45.5 She is non ambulatory and is shivam lift. She does sit in the chair all day. H/o HTN not on any meds Intellectual disability she is a [facility] resident. Plan/VTE VTE Prophylaxis Ordered?: Yes VS, I&O, 24H, Fishbone Vital Signs/I&O Vital Signs Date Time Temp Pulse Resp B/P (MAP) Pulse Ox O2 Delivery O2 Flow Rate FiO2 10/29/20 14:00 97.7 82 16 148/83 (104) 97 10/29/20 06:00 Room Air I&O- Last 24 Hours up to 6 AM 10/29/20 06:00 Intake Total 1360 ml Output Total 1000 ml Balance 360 ml Laboratory Data 24H LABS Laboratory Tests 2 10/29/20 05:31: Immature Granulocyte % (Auto) 0.6, Neutrophils (%) (Auto) 60.9, Lymphocytes (%) (Auto) 24.1, Monocytes (%) (Auto) 10.7H, Eosinophils (%) (Auto) 3.1H, Basophils (%) (Auto) 0.6, Neutrophils # (Auto) 4.4, Lymphocytes # (Auto) 1.7, Monocytes # (Auto) 0.8, Eosinophils # (Auto) 0.2, Basophils # (Auto) 0.0, Nucleated Red Blood Cells % (auto) 0.0, Anion Gap 5L, Glomerular Filtration Rate > 60.0, Calcium Level 8.5L CBC/BMP Laboratory Tests 10/29/20 05:31 Microbiology Microbiology 10/26/20 Respiratory Virus Panel (PCR) (FELECIA) - Final, Complete 10/26/20 Blood Culture - Preliminary, Resulted No Growth after 48 hours. All Specime... 10/26/20 Urine Culture, Received Pending 10/26/20 Blood Culture - Preliminary, Resulted No Growth after 48 hours. All Specime... CHAPIS CLEVELAND MD Oct 29, 2020 16:37
[2020-10-29 20:00] VITALS: BP 149/92
[2020-10-29] MEDS: FERROUS SULFATE 325MG TAB PO SCH (20:33)
[2020-10-30] MEDS: CIPROFLOXACIN 400 MG in IV 1 EA IV SCH (01:56)
[2020-10-30 06:00] VITALS: BP 138/86
[2020-10-30] MEDS ORDERED: LevoFLOXacin 750 MG TABLET PO SCH (06:00)
[2020-10-30 06:42] LABS: HEMATOCRIT 33.8 % (36.0-47.0); HEMOGLOBIN 10.6 g/dl (12.0-15.5); MEAN CORPUSCULAR HEMOGLOBIN 29.9 pg (27.0-33.0); MEAN CORPUSCULAR HGB CONC 31.4 g/dl (32.0-36.5); MEAN CORPUSCULAR VOLUME 95.2 fl (80.0-96.0); PLATELET COUNT, AUTOMATED 241 10^3/uL (150-450); RED BLOOD COUNT 3.55 10^6/uL (4.00-5.40); WHITE BLOOD COUNT 7.5 10^3/uL (4.0-10.0)
[2020-10-30 06:59] LABS: BLOOD UREA NITROGEN 21 MG/DL (7-18); CALCIUM LEVEL 8.4 MG/DL (8.8-10.2); CARBON DIOXIDE LEVEL 29 MEQ/L (21-32); CHLORIDE LEVEL 108 MEQ/L (98-107); CREATININE FOR GFR 0.72 MG/DL (0.55-1.30); GLOMERULAR FILTRATION RATE > 60.0 (>45); GLUCOSE, FASTING 100 MG/DL (70-100); POTASSIUM SERUM 3.4 MEQ/L (3.5-5.1); SODIUM LEVEL 143 MEQ/L (136-145)
[2020-10-30 07:30] LABS: ATYPICAL LYMPH 1 % (0-5); EOSINOPHILS 2 % (0-3); LYMPHOCYTES 29 % (16-44); MONOCYTES 8 % (0-5); NEUTROPHILS 59 % (28-66)
[2020-10-30 07:33] LABS: PLATELET ESTIMATE NORMAL (NORMAL)
[2020-10-30] MEDS ORDERED: LEVO750T13 PO (07:34)
[2020-10-30] MEDS ORDERED: TORS20TA2 PO (07:34)
[2020-10-30] MEDS: lamoTRIgine 100MG TAB PO SCH (07:57)
[2020-10-30] MEDS: ENOXAPARIN 40MG/0.4ML SYRINGE (J1650 PER 10MG) SC SCH (07:58)
[2020-10-30] MEDS: TOPIRAMATE (TopAMAX) 25 MG TAB PO SCH (07:58)
[2020-10-30] MEDS: DOCUSATE SODIUM 100MG CAPSULE PO SCH (07:59)
[2020-10-30] MEDS: NYSTATIN 100,000 UNITS/GM TOPICAL PWD 15 GM TOP SCH (08:00)
[2020-10-30] MEDS ORDERED: POTASSIUM CHLORIDE 10 MEQ SR TABLET PO ONE (09:00)
[2020-10-30] MEDS ORDERED: TORSEMIDE 20 MG TAB PO SCH (09:00)
[2020-10-30 10:00] VITALS: BP 135/94
--- NOTE | 2020-10-30 11:42 | IPNPDOC ---
Subjective Date Seen The patient was seen on 10/30/20. Subjective Chief Complaint/HPI Patient was supposed to go home to [facility]. But no transportation available today or tomorrow. Objective Physical Examination General Exam: Positive: Alert, Cooperative, No Acute Distress Eye Exam: Positive: PERRLA, Conjunctiva & lids normal, EOMI; Negative: Sclera icteric ENT Exam: Positive: Atraumatic, Mucous membr. moist/pink, Pharynx Normal Neck Exam: Positive: Supple; Negative: JVD, thyromegaly Chest Exam: Positive: Clear to auscultation, Normal air movement Heart Exam: Positive: Rate Normal, Regular Rhythm, Normal S1, Normal S2; Negative: Murmurs, Rubs Abdomen Exam: Positive: Normal bowel sounds, Soft; Negative: Tenderness, Hepatospenomegaly Extremity Exam: Positive: Edema; Negative: Clubbing, Cyanosis Assessment /Plan Assessment This is a 64 y/o female resident of [facility] with a pmh of intellectual disability, htn, epilepsy, Morbid obesity with BMI of 45.5 who presented to our ED via EMS after being noted to have fevers and complaining of abdominal pain and left back pain. Ct abdomen was suggestive of left pyelonephritis. Pyelonephritis urine culture E coli will give Levofloxacin Epilepsy continue lamictal, topamax Morbid obesity with BMI of 45.5 She is non ambulatory and is shivam lift. She does sit in the chair all day. H/o HTN not on any meds seems a little fluid overloaded will give torsemide x 3 days. Intellectual disability she is a [facility] resident. Plan/VTE VTE Prophylaxis Ordered?: Yes VS, I&O, 24H, Fishbone Vital Signs/I&O Vital Signs Date Time Temp Pulse Resp B/P (MAP) Pulse Ox O2 Delivery O2 Flow Rate FiO2 10/30/20 06:00 97.3 92 18 138/86 (103) 92 Room Air I&O- Last 24 Hours up to 6 AM 10/30/20 06:00 Intake Total 360 ml Output Total 1500 ml Balance -1140 ml Laboratory Data 24H LABS Laboratory Tests 2 10/30/20 05:42: Neutrophils (%) (Auto) , Nucleated Red Blood Cells % (auto) 0.0, Neutrophils 59, Band Neutrophils 1, Lymphocytes (Manual) 29, Monocytes (Manual) 8H, Eosinophils (Manual) 2, Atypical Lymphocytes 1, Platelet Estimate NORMAL, Anion Gap 6L, Glomerular Filtration Rate > 60.0, Calcium Level 8.4L CBC/BMP Laboratory Tests 10/30/20 05:42 Microbiology Microbiology 10/26/20 Respiratory Virus Panel (PCR) (FELECIA) - Final, Complete 10/26/20 Blood Culture - Preliminary, Resulted No Growth after 72 hours. All specime... 10/26/20 Urine Culture - Final, Complete Escherichia Coli 10/26/20 Blood Culture - Preliminary, Resulted No Growth after 72 hours. All specime... CHAPIS CLEVELAND MD Oct 30, 2020 11:42
--- NOTE | 2020-10-31 06:54 | DS.PDOC ---
Discharge Summary General Date of Admission Oct 27, 2020 at 04:47 Date of Discharge 10/30/20 Discharge Summary PROCEDURES PERFORMED DURING STAY: [None]. DISCHARGE DIAGNOSES: Pyelonephritis SECONDARY DIAGNOSIS: Intellectual disability, HTN, epilepsy, Morbid obesity with BMI of 45.5 COMPLICATIONS/CHIEF COMPLAINT: Pyelonephritis. HOSPITAL COURSE: This is a 64 y/o female resident of [facility] with a pmh of intellectual disability, htn, epilepsy, Morbid obesity with BMI of 45.5 who presented to our ED via EMS after being noted to have fevers and complaining of abdominal pain and left back pain. Ct abdomen was suggestive of left pyelonephritis. Pyelonephritis urine culture E coli will give Levofloxacin Epilepsy continue lamictal, topamax Morbid obesity with BMI of 45.5 She is non ambulatory and is shivam lift. She does sit in the chair all day. H/o HTN not on any meds seems a little fluid overloaded will give torsemide x 3 days. Intellectual disability she is a [facility] resident. DISCHARGE MEDICATIONS: Please see below. ALLERGIES: Please see below. PHYSICAL EXAMINATION ON DISCHARGE: VITAL SIGNS: Please see below. General Exam: Positive: Alert, Cooperative, No Acute Distress Eye Exam: Positive: PERRLA, Conjunctiva & lids normal, EOMI; Negative: Sclera icteric ENT Exam: Positive: Atraumatic, Mucous membr. moist/pink, Pharynx Normal Neck Exam: Positive: Supple; Negative: JVD, thyromegaly Chest Exam: Positive: Clear to auscultation, Normal air movement Heart Exam: Positive: Rate Normal, Regular Rhythm, Normal S1, Normal S2; Negative: Murmurs, Rubs Abdomen Exam: Positive: Normal bowel sounds, Soft; Negative: Tenderness, Hepatosplenomegaly Extremity Exam: Positive: Edema; Negative: Clubbing, Cyanosis LABORATORY DATA: Please see below. ACTIVITY: [As tolerated]. DIET: As tolerated DISPOSITION: 01 Home, Self-Care. DISCHARGE INSTRUCTIONS: Follow up with PMD in 1 week DISCHARGE CONDITION: [Stable]. TIME SPENT ON DISCHARGE:35 minutes. Vital Signs/I&Os Vital Signs Date Time Temp Pulse Resp B/P (MAP) Pulse Ox O2 Delivery O2 Flow Rate FiO2 10/30/20 10:00 98.0 93 19 135/94 (108) 95 Room Air I&O- Last 24 Hours up to 6 AM 10/31/20 06:00 Intake Total 400 ml Output Total 0 ml Balance 400 ml Microbiology Microbiology 10/26/20 Respiratory Virus Panel (PCR) (FELECIA) - Final, Complete 10/26/20 Blood Culture - Preliminary, Resulted No Growth after 72 hours. All specime... 10/26/20 Urine Culture - Final, Complete Escherichia Coli 10/26/20 Blood Culture - Preliminary, Resulted No Growth after 72 hours. All specime... Discharge Medications Scheduled Ascorbic Acid (Vitamin C) 500 Mg Tab, 500 MG PO DAILY, (Reported) Calcium Carbonate/Vitamin D3 (Calcium 600-Vit D3 400 Tablet) 1 Each Tablet, 1 TAB PO BID, (Reported) Cholecalciferol (Vitamin D3) (Vitamin D3) 1,000 Unit Tablet, 1,000 UNITS PO DAILY, (Reported) Docusate Sodium (Colace) 100 Mg Cap, 100 MG PO DAILY, (Reported) Ferrous Sulfate (Ferrous Sulfate) 325 Mg Tab, 325 MG PO QHS, (Reported) Lamotrigine (Lamotrigine) 200 Mg Tab, 200 MG PO BID, (Reported) Levofloxacin (Levofloxacin) 750 Mg Tablet, 750 MG PO DAILY@06 Nystatin (Nystatin Powder) 15 Gm Powder, 1 DOSE TOP BID, (Reported) APPLY TO SKIN FOLDS Topiramate (Topiramate) 50 Mg Tab, 50 MG PO BID, (Reported) Torsemide (Torsemide) 20 Mg Tablet, 40 MG PO DAILY For 3 days Scheduled PRN Acetaminophen (Tylenol) 325 Mg Tablet, 650 MG PO Q4H PRN for PAIN LEVEL 1-5, (Reported) Allergies Coded Allergies: strawberry (Verified Allergy, Unknown, 10/26/20) tomato (Verified Allergy, Unknown, 10/26/20) CHAPIS CLEVELAND MD Oct 31, 2020 06:54
[2020-10-31] MEDS ORDERED: ANEC4CRE3 TOP (18:49)
== END 2020-10-30 14:38 | disposition home or self-care (01) | DRG 690 ==
LOC: EDBD → M ED 19:37 → M ED INP 10-27 04:47 → ENRESERV 10-27 14:00 → M MSPAV 10-27 15:23
PROVIDERS: ADMIT Family Medicine; ATTEND Internal Medicine Nephrology
DX: N10 Acute pyelonephritis (principal); Z68.42 Body mass index [BMI] 45.0-49.9, adult; G40.909 Epilepsy, unspecified, not intractable, without status epilepticus; F79 Unspecified intellectual disabilities; I10 Essential (primary) hypertension; E66.9 Obesity, unspecified; Z79.899 Other long term (current) drug therapy; Z91.018 Allergy to other foods; B96.20 Unspecified Escherichia coli [E. coli] as the cause of diseases classified elsewhere

== ENCOUNTER 2020-10-31 13:42 | Emergency (ER) | payer MEDICARE, MEDICAID ==
[~2020-10-31] VITALS: Ht 152.4 cm; Wt 100.6 kg
[~2020-10-31 13:42] MED LIST changes: +ACET-907 PO; +CALC1TAB63 PO; +D31000TA2 PO; +LEVO750T13 PO; +TORS20TA2 PO
[2020-10-31] MEDS ORDERED: LIDOCAINE 4% CREAM 5GM (LMX4) TOP ONE (17:10)
--- NOTE | 2020-10-31 18:05 | REP ---
INDICATION: recent IV/blood draws, now pain, bruising COMPARISON: None. None TECHNIQUE: Reis scale and color Doppler evaluation using linear high frequency transducer. FINDINGS: Limited ultrasound examination of the left upper extremity demonstrates no evidence for deep venous thrombosis. However, the left subclavian and cephalic veins were not visible. IMPRESSION: Limited examination. No evidence for deep venous thrombosis to the visualized left upper extremity venous structures. <Electronically signed by Wayne Nails > 10/31/20 [id number]
[2020-10-31] MEDS ORDERED: ANEC4CRE3 TOP (18:49)
[2020-10-31 19:17] VITALS: BP 131/73
== END 2020-10-31 19:30 | disposition home or self-care (01) ==
LOC: M ED 13:42
DX: R58 Hemorrhage, not elsewhere classified (principal); M79.602 Pain in left arm; I10 Essential (primary) hypertension; F79 Unspecified intellectual disabilities; Z79.899 Other long term (current) drug therapy

== ENCOUNTER → 2023-09-24 | Outpatient (CLI) | payer MEDICARE, MEDICAID ==
[~2023-09-24] MED LIST changes: +ACET1TAB55 PO; +AMOX500C PO; +ANEC4CRE3 TOP; +CALC600T63 PO; +CEFU50TA PO; -D31000TA2 PO; +DOXY100T PO; +FURO20TA2 PO; +GUAI200T6 PO; +LAMI1TAB9 PO; +LEVO1TAB40 PO; -LEVO750T13 PO; +MIRA33506 PO; +OSEL75CA PO; +PRED20TA PO; +RISATAB3 PO; +SENN-111 PO; +TOPI-21 PO; -TOPI50TA9 PO; +VENTAER INH; +VITA-158 PO; +VITA100093 PO; +VITA1CHW8 PO; +VITA500C3 PO; +VITMTA PO
== END ==
LOC: M WHC 11:08 → MERGE 11:08
PROVIDERS: ATTEND Family Medicine
DX: Z12.31 Encounter for screening mammogram for malignant neoplasm of breast (principal); M81.0 Age-related osteoporosis without current pathological fracture

== ENCOUNTER → 2023-10-30 | Outpatient (CLI) | payer MEDICARE, MEDICAID | LOC: M RAD 18:45 | PROVIDERS: ATTEND Physician Assistant Medical | DX: J20.9 Acute bronchitis, unspecified (principal) ==

== ENCOUNTER → 2024-02-16 | Outpatient (REF) | payer MEDICARE, MEDICAID ==
[~2024-02-16] MED LIST changes: -SENN-111 PO; +SENN-165 PO
[2024-02-16 12:21] LABS: AMORPHOUS SEDIMENT SMALL (NEGATIVE); APPEARANCE, URINE HAZY (CLEAR); BACTERIA, URINE AUTO NEGATIVE (NEGATIVE); BILIRUBIN, URINE AUTO NEGATIVE (NEGATIVE); BLOOD, URINE BLOOD NEGATIVE (NEGATIVE); COLOR, URINE YELLOW (YELLOW); GLUCOSE, URINE (UA) AUTO NEGATIVE (NEGATIVE); KETONE, URINE AUTO NEGATIVE (NEGATIVE); LEUKOCYTE ESTERASE, URINE AUTO NEGATIVE (NEGATIVE); MUCUS, URINE SMALL (NEGATIVE); NITRITE, URINE AUTO NEGATIVE (NEGATIVE); PROTEIN, URINE AUTO NEGATIVE (NEGATIVE); RBC, URINE AUTO 1 /HPF (0-3); SPECIFIC GRAVITY URINE AUTO 1.009 (1.002-1.035); SQUAMOUS EPITHELIAL CELL UR AU 1 /HPF (0-6); UROBILINOGEN, URINE AUTO 0.2 mg/dL (0.0-2.0); WBC, URINE AUTO 2 /HPF (0-3)
== END ==
LOC: M LAB REF 11:30
PROVIDERS: ATTEND Family Medicine
DX: R39.9 Unspecified symptoms and signs involving the genitourinary system (principal)

== ENCOUNTER 2024-02-27 14:56 | Outpatient (RCR) | payer MEDICARE, MEDICAID | END 2024-03-06 | LOC: M PT 14:56 | PROVIDERS: ATTEND Family Medicine | DX: R60.0 Localized edema (principal) ==

== ENCOUNTER 2024-03-20 10:48 | Outpatient (RCR) | payer MEDICARE, MEDICAID ==
[~2024-03-20 10:48] MED LIST changes: +NYST1POW3 TOP; -NYST1POW9 TOP
== END 2024-04-05 ==
LOC: M PT 10:48
PROVIDERS: ATTEND Family Medicine
DX: I89.0 Lymphedema, not elsewhere classified (principal)

== ENCOUNTER → 2024-04-24 | Outpatient (REF) | payer MEDICARE, MEDICAID | LOC: M SFHCADAM 13:57 | PROVIDERS: ATTEND Family Medicine | DX: I11.9 Hypertensive heart disease without heart failure (principal); D50.9 Iron deficiency anemia, unspecified; Z13.1 Encounter for screening for diabetes mellitus; I87.2 Venous insufficiency (chronic) (peripheral) ==

== ENCOUNTER → 2024-06-03 | Outpatient (CLI) | payer MEDICARE, MEDICAID ==
[2024-06-03 15:28] LABS: BASO % 0.6 % (0.0-1.0); EOS # 0.3 10^3/uL (0.0-0.5); EOS % 4.3 % (0.0-3.0); HEMATOCRIT 37.9 % (36.0-47.0); HEMOGLOBIN 11.8 g/dl (12.0-15.5); LYMPH # 1.8 10^3/uL (1.5-5.0); LYMPH % 29.5 % (24.0-44.0); MEAN CORPUSCULAR HEMOGLOBIN 31.6 pg (27.0-33.0); MEAN CORPUSCULAR HGB CONC 31.1 g/dl (32.0-36.5); MEAN CORPUSCULAR VOLUME 101.6 fl (80.0-96.0); MONO # 0.4 10^3/uL (0.0-0.8); MONO % 6.7 % (2.0-8.0); NEUTROPHILS # 3.6 10^3/uL (1.5-8.5); NEUTROPHILS % 58.3 % (36.0-66.0); PLATELET COUNT, AUTOMATED 241 10^3/uL (150-450); RED BLOOD COUNT 3.73 10^6/uL (4.00-5.40); WHITE BLOOD COUNT 6.2 10^3/uL (4.0-10.0)
[2024-06-03 15:55] LABS: ALBUMIN 3.6 G/DL (3.2-5.2); ALKALINE PHOSPHATASE 153 U/L (35-104); ALT/SGPT 20 U/L (7.0-40); AST/SGOT 16 U/L (<34); BILIRUBIN,TOTAL 0.5 MG/DL (0.3-1.2); BLOOD UREA NITROGEN 42 MG/DL (9-23); CALCIUM LEVEL 10.1 MG/DL (8.3-10.6); CARBON DIOXIDE LEVEL 33 MMOL/L (20-31); CHLORIDE LEVEL 101 MMOL/L (98-107); CREATININE FOR GFR 0.88 MG/DL (0.55-1.30); GLOMERULAR FILTRATION RATE > 60.0 (>45); GLUCOSE, FASTING 85 MG/DL (74-106); POTASSIUM SERUM 4.3 MMOL/L (3.5-5.1); SODIUM LEVEL 142 MMOL/L (136-145); TOTAL PROTEIN 7.6 G/DL (5.7-8.2)
== END ==
LOC: M WUC 09:34
PROVIDERS: ATTEND Psychiatry & Neurology Neurology
DX: G40.89 Other seizures (principal)

== ENCOUNTER → 2024-06-03 | Outpatient (CLI) | payer MEDICARE, MEDICAID ==
[2024-06-03 15:28] LABS: HEMATOCRIT 38.1 % (36.0-47.0); HEMOGLOBIN 11.8 g/dl (12.0-15.5); MEAN CORPUSCULAR HEMOGLOBIN 31.1 pg (27.0-33.0); MEAN CORPUSCULAR VOLUME 100.3 fl (80.0-96.0); PLATELET COUNT, AUTOMATED 227 10^3/uL (150-450); WHITE BLOOD COUNT 6.1 10^3/uL (4.0-10.0)
[2024-06-03 15:54] LABS: IRON (FE) 79 UG/DL (50-170); PERCENT SATURATION 22.4 % (13.2-45.0); TOTAL IRON BINDING CAPACITY 353 UG/DL (250-425)
[2024-06-03 15:55] LABS: ALBUMIN 3.7 G/DL (3.2-5.2); ALKALINE PHOSPHATASE 153 U/L (35-104); ALT/SGPT 19 U/L (7.0-40); AST/SGOT 17 U/L (<34); BILIRUBIN,TOTAL 0.5 MG/DL (0.3-1.2); BLOOD UREA NITROGEN 43 MG/DL (9-23); CARBON DIOXIDE LEVEL 33 MMOL/L (20-31); CHLORIDE LEVEL 102 MMOL/L (98-107); CREATININE FOR GFR 0.87 MG/DL (0.55-1.30); GLOMERULAR FILTRATION RATE > 60.0 (>45); GLUCOSE, FASTING 86 MG/DL (74-106); POTASSIUM SERUM 4.3 MMOL/L (3.5-5.1); SODIUM LEVEL 140 MMOL/L (136-145); TOTAL PROTEIN 7.6 G/DL (5.7-8.2)
[2024-06-03 15:58] LABS: HEMOGLOBIN A1c 5.2 % (4.0-6.0)
== END ==
LOC: M WUC 09:36
PROVIDERS: ATTEND Family Medicine
DX: I11.9 Hypertensive heart disease without heart failure (principal); D50.9 Iron deficiency anemia, unspecified; Z13.1 Encounter for screening for diabetes mellitus; I87.2 Venous insufficiency (chronic) (peripheral); G40.89 Other seizures

== ENCOUNTER → 2024-06-04 | Outpatient (REF) | payer MEDICARE, MEDICAID | LOC: M SFHCADAM 16:51 | PROVIDERS: ATTEND Family Medicine | DX: R41.0 Disorientation, unspecified (principal) ==

== ENCOUNTER → 2024-06-06 | Outpatient (REF) | payer MEDICARE, MEDICAID | LOC: M LAB REF 16:32 | PROVIDERS: ATTEND Physician Assistant | DX: N39.0 Urinary tract infection, site not specified (principal) ==

== ENCOUNTER → 2024-12-04 | Outpatient (REF) | payer MEDICARE, MEDICAID ==
[~2024-12-04] MED LIST changes: +ALBU2.5V10 NEB; +ATOR1TAB19 PO; +AZIT-12 PO; +BACT800T5 PO; +CVS13CRE TOP; +EUCECRE12 TOP; +GUAI100L6 PO; +IBUP200C25 PO; +MILKSUS3 PO; +MULT400T10 PO; +NEOM28.3 TP; +PRED10TA2 PO; +SPIR50TA4 PO; +TORS100T PO
[2024-12-05 12:30] LABS: APPEARANCE, URINE HAZY (CLEAR); BACTERIA, URINE AUTO NEGATIVE (NEGATIVE); BILIRUBIN, URINE AUTO NEGATIVE (NEGATIVE); BLOOD, URINE BLOOD 1+ (NEGATIVE); CALCIUM OXALATE CRYSTALS SMALL; GLUCOSE, URINE (UA) AUTO NEGATIVE (NEGATIVE); KETONE, URINE AUTO NEGATIVE (NEGATIVE); LEUKOCYTE ESTERASE, URINE AUTO 2+ (NEGATIVE); NITRITE, URINE AUTO NEGATIVE (NEGATIVE); PROTEIN, URINE AUTO NEGATIVE (NEGATIVE); RBC, URINE AUTO 5 /HPF (0-3); SPECIFIC GRAVITY URINE AUTO 1.012 (1.002-1.035); SQUAMOUS EPITHELIAL CELL UR AU 4 /HPF (0-6); UROBILINOGEN, URINE AUTO 0.2 mg/dL (0.0-2.0); WBC, URINE AUTO 9 /HPF (0-3)
== END ==
LOC: M SFHCADAM 11:40
PROVIDERS: ATTEND Family Medicine
DX: R39.9 Unspecified symptoms and signs involving the genitourinary system (principal)

== ENCOUNTER 2024-12-08 11:37 | Inpatient (IN) | payer MEDICARE, MEDICAID ==
[~2024-12-08] VITALS: Ht 149.9 cm; Wt 106.9 kg
[2024-12-08] VITALS (18 sets, daily range): BP systolic 78–155; BP diastolic 44–81; TEMP 94.1; O2SAT 92–98
[~2024-12-08 11:37] MED LIST changes: -ALBU2.5V10 NEB; -ATOR1TAB19 PO; -IBUP200C25 PO; -MILKSUS3 PO; -TORS100T PO
[2024-12-08] MEDS: IPRATROPIUM 0.5 MG/ALBUTEROL 2.5 MG INH SOL UD 3 ML NEB PRN (12:17)
[2024-12-08 12:58] LABS: VENOUS BASE EXCESS 5.3 (-2.0-2.0); VENOUS HCO3 32.2 MMOL/L (23.0-27.0); VENOUS O2 SATURATION 93.5 % (60.0-80.0); VENOUS PARTIAL PRESSURE CO2 58.1 mmHg (38.0-50.0); VENOUS PARTIAL PRESSURE O2 71.7 mmHg (30.0-50.0); VENOUS PH 7.361 UNITS (7.330-7.430); VENOUS STANDARD HCO3 29.2 MMOL/L; VENOUS TOTAL CO2 33.9 MMOL/L (24.0-28.0)
[2024-12-08 13:02] LABS: BASO # 0.0 10^3/uL (0.0-0.2); BASO % 0.3 % (0.0-1.0); EOS # 0.2 10^3/uL (0.0-0.5); EOS % 2.3 % (0.0-3.0); LYMPH # 2.1 10^3/uL (1.5-5.0); LYMPH % 30.4 % (24.0-44.0); MONO # 0.7 10^3/uL (0.0-0.8); MONO % 9.6 % (2.0-8.0); NEUTROPHILS # 3.9 10^3/uL (1.5-8.5); NEUTROPHILS % 57.1 % (36.0-66.0); PLATELET COUNT, AUTOMATED 142 10^3/uL (150-450)
[2024-12-08] MEDS ORDERED: IBUP200C25 PO (13:19)
[2024-12-08] MEDS ORDERED: MILKSUS3 PO (13:19)
[2024-12-08] MEDS ORDERED: ATOR1TAB19 PO (13:19)
[2024-12-08] MEDS ORDERED: ALBU2.5V10 NEB (13:19)
[2024-12-08] MEDS ORDERED: HOME MED LIST COMPLETE! XX SCH (13:20)
[2024-12-08 13:34] LABS: ALT/SGPT 53.0 U/L (7.0-40); AST/SGOT 65.0 U/L (<34); CALCIUM LEVEL 10.6 MG/DL (8.3-10.6); CARBON DIOXIDE LEVEL 35.0 MMOL/L (20-31); CHLORIDE LEVEL 100.0 MMOL/L (98-107); CREATININE FOR GFR 1.21 MG/DL (0.55-1.30); GLOMERULAR FILTRATION RATE 49.4 (>45); POTASSIUM SERUM 5.2 MMOL/L (3.5-5.1); SODIUM LEVEL 144.0 MMOL/L (136-145)
[2024-12-08] MEDS ORDERED: ISOVUE-370 76% 100 ML VIAL As Ordered ONE (14:29)
[2024-12-08] MEDS: NS (Normal Saline) 0.9% 1,000 ML IV ONE (14:40)
[2024-12-08 14:57] LABS: ABG BASE EXCESS 2.8 (-2.0-2.0); ABG HCO3 30.3 MMOL/L (22.0-26.0); ABG O2 SATURATION 97.3 % (95.0-99.0); ABG PARTIAL PRESSURE O2 103.0 mmHg (75.0-100.0); ABG STANDARD HCO3 27.0 MMOL/L. (22.0-26.0); ABG TOTAL CO2 32.2 MMOL/L (23.0-31.0); ABG pH (ARTERIAL) 7.304 UNITS (7.350-7.450)
[2024-12-08 14:59] LABS: ABG PARTIAL PRESSURE CO2 62.4 mmHg (35.0-45.0)
[2024-12-08] MEDS: cefTRIAXone SOD 2 GM in DEXTROSE 5% (D5W) ADV/MINI-BAG 50 ML IV ONE (16:57)
[2024-12-08 17:01] LABS: ABG BASE EXCESS 1.2 (-2.0-2.0); ABG HCO3 28.0 MMOL/L (22.0-26.0); ABG O2 SATURATION 94.6 % (95.0-99.0); ABG PARTIAL PRESSURE CO2 55.0 mmHg (35.0-45.0); ABG PARTIAL PRESSURE O2 78.6 mmHg (75.0-100.0); ABG STANDARD HCO3 25.5 MMOL/L. (22.0-26.0); ABG TOTAL CO2 29.7 MMOL/L (23.0-31.0); ABG pH (ARTERIAL) 7.325 UNITS (7.350-7.450)
[2024-12-08 17:44] LABS: KETONE, URINE AUTO RFX NEGATIVE (NEGATIVE); LEUKOCYTE ESTERASE UR AUTO RFX 1+ (NEGATIVE); MUCUS, URINE RFX SMALL (NEGATIVE); NITRITE, URINE AUTO RFX NEGATIVE (NEGATIVE); RBC, URINE AUTO RFX 51 /HPF (0-3); SQUAM EPITHELIAL CELL UR AURFX 1 /HPF (0-6); WBC, URINE AUTO RFX 36 /HPF (0-3)
[2024-12-08] MEDS ORDERED: ACETAMINOPHEN 325 MG TAB PO PRN (17:45)
[2024-12-08] MEDS ORDERED: IBUPROFEN 200 MG TAB PO PRN (17:45)
[2024-12-08] MEDS: FUROSEMIDE 100 MG/10 ML VIAL IV ONE (18:40)
[2024-12-08] MEDS: lamoTRIgine 100 MG TAB PO SCH (20:59)
[2024-12-08] MEDS: ENOXAPARIN 60 MG/0.6 ML SYRINGE (J1650 PER 10MG) SC SCH (20:59)
[2024-12-08] MEDS: FERROUS SULFATE 325 MG TAB PO SCH (20:59)
[2024-12-08] MEDS: TOPIRAMATE 25 MG TAB PO SCH (21:00)
[2024-12-08] MEDS: ATORVASTATIN 10 MG TAB PO SCH (21:00)
[2024-12-08 22:06] LABS: ABG BASE EXCESS 4.1 (-2.0-2.0); ABG HCO3 30.2 MMOL/L (22.0-26.0); ABG O2 SATURATION 97.0 % (95.0-99.0); ABG PARTIAL PRESSURE CO2 51.9 mmHg (35.0-45.0); ABG PARTIAL PRESSURE O2 92.1 mmHg (75.0-100.0); ABG STANDARD HCO3 28.1 MMOL/L. (22.0-26.0); ABG TOTAL CO2 31.7 MMOL/L (23.0-31.0); ABG pH (ARTERIAL) 7.382 UNITS (7.350-7.450)
[2024-12-08] MEDS: NYSTATIN 100,000 UNITS/GM TOPICAL PWD 15 GM TOP SCH (22:46)
[2024-12-08] MEDS: IPRATROPIUM 0.5 MG/ALBUTEROL 2.5 MG INH SOL UD 3 ML NEB SCH (23:00)
[2024-12-08 23:35] LABS: CALCIUM LEVEL 9.9 MG/DL (8.3-10.6); CARBON DIOXIDE LEVEL 31.0 MMOL/L (20-31); CHLORIDE LEVEL 100.0 MMOL/L (98-107); CREATININE FOR GFR 1.2 MG/DL (0.55-1.30); GLOMERULAR FILTRATION RATE 49.9 (>45); MAGNESIUM LEVEL 2.2 MG/DL (1.8-2.4); POTASSIUM SERUM 5.1 MMOL/L (3.5-5.1); SODIUM LEVEL 142.0 MMOL/L (136-145)
[2024-12-09] VITALS (30 sets, daily range): BP systolic 91–143; BP diastolic 45–115; TEMP 96.6–98.4; O2SAT 89–98
[2024-12-09 04:49] LABS: ABG BASE EXCESS 6.1 (-2.0-2.0); ABG HCO3 32.0 MMOL/L (22.0-26.0); ABG O2 SATURATION 98.6 % (95.0-99.0); ABG PARTIAL PRESSURE CO2 52.8 mmHg (35.0-45.0); ABG PARTIAL PRESSURE O2 162.1 mmHg (75.0-100.0); ABG STANDARD HCO3 30.0 MMOL/L. (22.0-26.0); ABG TOTAL CO2 33.6 MMOL/L (23.0-31.0); ABG pH (ARTERIAL) 7.400 UNITS (7.350-7.450)
[2024-12-09 06:23] LABS: BASO # 0.0 10^3/uL (0.0-0.2); BASO % 0.2 % (0.0-1.0); EOS # 0.0 10^3/uL (0.0-0.5); EOS % 0.0 % (0.0-3.0); LYMPH # 0.9 10^3/uL (1.5-5.0); LYMPH % 18.3 % (24.0-44.0); MONO # 0.2 10^3/uL (0.0-0.8); MONO % 3.8 % (2.0-8.0); NEUTROPHILS # 3.7 10^3/uL (1.5-8.5); NEUTROPHILS % 76.6 % (36.0-66.0); PLATELET COUNT, AUTOMATED 144 10^3/uL (150-450)
[2024-12-09 07:00] LABS: ALT/SGPT 40.0 U/L (7.0-40); AST/SGOT 36.0 U/L (<34); CALCIUM LEVEL 9.9 MG/DL (8.3-10.6); CARBON DIOXIDE LEVEL 32.0 MMOL/L (20-31); CHLORIDE LEVEL 100.0 MMOL/L (98-107); CREATININE FOR GFR 1.31 MG/DL (0.55-1.30); GLOMERULAR FILTRATION RATE 44.9 (>45); POTASSIUM SERUM 4.6 MMOL/L (3.5-5.1); SODIUM LEVEL 144.0 MMOL/L (136-145)
[2024-12-09] MEDS: VITAMIN D 1,000 INTERNATIONAL UNITS TABLET PO SCH (09:01)
[2024-12-09] MEDS: SPIRONOLACTONE 50 MG TAB PO SCH (09:01)
[2024-12-09] MEDS: ASCORBIC ACID 500 MG TAB PO SCH (09:01)
[2024-12-09] MEDS: MULTIVITAMINS/MINERALS THERAP 1 TAB PO SCH (09:02)
[2024-12-09] MEDS: DOCUSATE SODIUM 100 MG CAPSULE PO SCH (09:02)
[2024-12-09] MEDS: PANTOPRAZOLE 40MG VIAL IV SCH (09:03)
[2024-12-09] MEDS: FUROSEMIDE injection 100 MG, VIAL 2 BAG 13MM ADAPTER 1 EACH in NS 100 ML IV SCH (10:17)
[2024-12-09] MEDS ORDERED: NOREPINEPHRINE 4 MG IN D5W 250 ML IVBAG (16 MCG/ML) As Ordered ONE (10:18)
[2024-12-09] MEDS: cefTRIAXone SOD 1 GM in DEXTROSE 5% (D5W) ADV/MINI-BAG 50 ML IV SCH (15:25)
[2024-12-10] VITALS (18 sets, daily range): BP systolic 78–148; BP diastolic 42–67; TEMP 96.3–97.2; O2SAT 95–100
[2024-12-10 02:30] LABS: CALCIUM LEVEL 8.8 MG/DL (8.3-10.6); CARBON DIOXIDE LEVEL 34.0 MMOL/L (20-31); CHLORIDE LEVEL 102.0 MMOL/L (98-107); CREATININE FOR GFR 1.58 MG/DL (0.55-1.30); GLOMERULAR FILTRATION RATE 35.9 (>45); POTASSIUM SERUM 3.5 MMOL/L (3.5-5.1); SODIUM LEVEL 146.0 MMOL/L (136-145)
[2024-12-10 04:37] LABS: BASO # 0.0 10^3/uL (0.0-0.2); BASO % 0.6 % (0.0-1.0); EOS # 0.2 10^3/uL (0.0-0.5); EOS % 2.5 % (0.0-3.0); LYMPH # 1.9 10^3/uL (1.5-5.0); LYMPH % 26.9 % (24.0-44.0); MONO # 0.6 10^3/uL (0.0-0.8); MONO % 8.9 % (2.0-8.0); NEUTROPHILS # 4.4 10^3/uL (1.5-8.5); NEUTROPHILS % 60.7 % (36.0-66.0); PLATELET COUNT, AUTOMATED 150 10^3/uL (150-450)
[2024-12-10 05:43] LABS: TOTAL PROTEIN,RANDOM URINE 20.8 MG/DL (0.0-14.0)
[2024-12-10 06:25] LABS: ALT/SGPT 32 U/L (7.0-40); AST/SGOT 33 U/L (<34); CALCIUM LEVEL 8.9 MG/DL (8.3-10.6); CARBON DIOXIDE LEVEL 34 MMOL/L (20-31); CHLORIDE LEVEL 101 MMOL/L (98-107); CHOLESTEROL LEVEL 143 MG/DL (<200); CHOLESTEROL RISK RATIO 2.31 (<5); CREATININE FOR GFR 1.54 MG/DL (0.55-1.30); GLOMERULAR FILTRATION RATE 37.0 (>45); LDL CHOLESTEROL 61.1 MG/DL (<100); MAGNESIUM LEVEL 2.2 MG/DL (1.8-2.4); NON-HDL-C 81.3 MG/DL; POTASSIUM SERUM 3.5 MMOL/L (3.5-5.1); SODIUM LEVEL 146 MMOL/L (136-145); TRIGLYCERIDES LEVEL 101 MG/DL (<150)
[2024-12-10 07:13] LABS: IRON (FE) 65 UG/DL (50-170); PERCENT SATURATION 22.0 % (13.2-45.0)
[2024-12-10 07:41] LABS: HEPATITIS C VIRUS ABY INDEX < 0.02 INDEX (<0.8)
[2024-12-10 07:46] LABS: VITAMIN B12 LEVEL 944 PG/ML (211-911)
[2024-12-10] MEDS: POTASSIUM CHLORIDE 10MEQ SR TABLET PO SCH (11:05)
[2024-12-11] VITALS (10 sets, daily range): BP systolic 110–157; BP diastolic 50–98; TEMP 97.5–98.6; O2SAT 92–100
[2024-12-11 04:55] LABS: BASO # 0.0 10^3/uL (0.0-0.2); BASO % 0.4 % (0.0-1.0); EOS # 0.2 10^3/uL (0.0-0.5); EOS % 3.2 % (0.0-3.0); LYMPH # 1.7 10^3/uL (1.5-5.0); LYMPH % 21.7 % (24.0-44.0); MONO # 0.6 10^3/uL (0.0-0.8); MONO % 8.4 % (2.0-8.0); NEUTROPHILS # 5.0 10^3/uL (1.5-8.5); NEUTROPHILS % 65.8 % (36.0-66.0); PLATELET COUNT, AUTOMATED 156 10^3/uL (150-450)
[2024-12-11 05:24] LABS: CALCIUM LEVEL 8.5 MG/DL (8.3-10.6); CARBON DIOXIDE LEVEL 37.0 MMOL/L (20-31); CHLORIDE LEVEL 97.0 MMOL/L (98-107); CREATININE FOR GFR 1.51 MG/DL (0.55-1.30); GLOMERULAR FILTRATION RATE 37.9 (>45); MAGNESIUM LEVEL 2.2 MG/DL (1.8-2.4); POTASSIUM SERUM 4.2 MMOL/L (3.5-5.1); SODIUM LEVEL 144.0 MMOL/L (136-145)
[2024-12-11] MEDS: TORSEMIDE 50 MG PER 1/2 TAB PO SCH (09:15)
[2024-12-12 03:25] VITALS: BP 124/56; TEMP 97.5; O2SAT 96
[2024-12-12 05:30] LABS: BASO # 0.0 10^3/uL (0.0-0.2); BASO % 0.6 % (0.0-1.0); EOS # 0.3 10^3/uL (0.0-0.5); EOS % 4.0 % (0.0-3.0); LYMPH # 1.8 10^3/uL (1.5-5.0); LYMPH % 26.6 % (24.0-44.0); MONO # 0.6 10^3/uL (0.0-0.8); MONO % 8.9 % (2.0-8.0); NEUTROPHILS # 4.0 10^3/uL (1.5-8.5); NEUTROPHILS % 59.2 % (36.0-66.0); PLATELET COUNT, AUTOMATED 162 10^3/uL (150-450)
[2024-12-12 06:39] LABS: CALCIUM LEVEL 8.9 MG/DL (8.3-10.6); CARBON DIOXIDE LEVEL 35.0 MMOL/L (20-31); CHLORIDE LEVEL 99.0 MMOL/L (98-107); CREATININE FOR GFR 1.56 MG/DL (0.55-1.30); GLOMERULAR FILTRATION RATE 36.4 (>45); MAGNESIUM LEVEL 2.5 MG/DL (1.8-2.4); POTASSIUM SERUM 4.1 MMOL/L (3.5-5.1); SODIUM LEVEL 145.0 MMOL/L (136-145)
[2024-12-12] MEDS ORDERED: TORS100T PO (07:10)
[2024-12-12 08:00] VITALS: BP 128/61; TEMP 97.8; O2SAT 94
[2024-12-12 09:49] VITALS: BP 128/61
[2024-12-12] MEDS ORDERED: MOM 30 ML SUSPENSION UDC PO ONE (11:05)
[2024-12-12] MEDS: MOM 30 ML SUSPENSION UDC PO ONE (11:08)
[2024-12-12] MEDS: LACTULOSE 20 GM/30 ML SYRUP UDC PO ONE (11:08)
== END 2024-12-12 16:24 | disposition home or self-care (01) | DRG 189 ==
LOC: EDBD 11:37 → M ED 11:37 → M ED INP 16:58 → M ICU 19:41
PROVIDERS: ADMIT Internal Medicine Pulmonary Disease; ATTEND General Practice
PROC: B246ZZZ Ultrasonography of Right and Left Heart (ICD-10-PCS; principal; 2024-12-10)
DX: J96.22 Acute and chronic respiratory failure with hypercapnia (principal); I50.33 Acute on chronic diastolic (congestive) heart failure; G93.41 Metabolic encephalopathy; Z68.43 Body mass index [BMI] 50.0-59.9, adult; E66.2 Morbid (severe) obesity with alveolar hypoventilation; N17.9 Acute kidney failure, unspecified; E87.29 Other acidosis; I13.0 Hypertensive heart and chronic kidney disease with heart failure and stage 1 through stage 4 chronic kidney disease, or unspecified chronic kidney disease; N39.0 Urinary tract infection, site not specified; I89.0 Lymphedema, not elsewhere classified; G40.909 Epilepsy, unspecified, not intractable, without status epilepticus; J45.909 Unspecified asthma, uncomplicated; E78.5 Hyperlipidemia, unspecified; R74.01 Elevation of levels of liver transaminase levels; E87.5 Hyperkalemia; L89.151 Pressure ulcer of sacral region, stage 1; D53.9 Nutritional anemia, unspecified; K59.00 Constipation, unspecified; K76.0 Fatty (change of) liver, not elsewhere classified; N18.9 Chronic kidney disease, unspecified; N20.0 Calculus of kidney; M16.0 Bilateral primary osteoarthritis of hip; K42.9 Umbilical hernia without obstruction or gangrene; I87.2 Venous insufficiency (chronic) (peripheral); G31.84 Mild cognitive impairment of uncertain or unknown etiology; D69.6 Thrombocytopenia, unspecified; J96.01 Acute respiratory failure with hypoxia; Z86.16 Personal history of COVID-19; Z99.3 Dependence on wheelchair; Z98.42 Cataract extraction status, left eye; Z79.899 Other long term (current) drug therapy; Z91.018 Allergy to other foods; Z96.652 Presence of left artificial knee joint

== ENCOUNTER → 2024-12-22 | Outpatient (CLI) | payer MEDICARE, MEDICAID ==
[~2024-12-22] MED LIST changes: +ALBU2.5V10 NEB; +ATOR1TAB19 PO; +IBUP200C25 PO; +MILKSUS3 PO; +TORS100T PO
[2024-12-22 12:44] LABS: PLATELET COUNT, AUTOMATED 249 10^3/uL (150-450)
[2024-12-22 13:14] LABS: ALT/SGPT 40.0 U/L (7.0-40); AST/SGOT 48.0 U/L (<34); CALCIUM LEVEL 11.0 MG/DL (8.3-10.6); CARBON DIOXIDE LEVEL 37.0 MMOL/L (20-31); CHLORIDE LEVEL 94.0 MMOL/L (98-107); CREATININE FOR GFR 1.51 MG/DL (0.55-1.30); GLOMERULAR FILTRATION RATE 37.9 (>45); POTASSIUM SERUM 4.7 MMOL/L (3.5-5.1); SODIUM LEVEL 142.0 MMOL/L (136-145)
== END ==
LOC: M WUC 09:50
PROVIDERS: ATTEND Physician Assistant
DX: I50.31 Acute diastolic (congestive) heart failure (principal); N17.9 Acute kidney failure, unspecified; R74.01 Elevation of levels of liver transaminase levels

== ENCOUNTER 2024-12-25 17:57 | Inpatient (IN) | payer MEDICARE, MEDICAID ==
[~2024-12-25] VITALS: Ht 149.9 cm; Wt 109.5 kg
[2024-12-25 20:58] LABS: BASO # 0.1 10^3/uL (0.0-0.2); BASO % 0.8 % (0.0-1.0); EOS # 0.2 10^3/uL (0.0-0.5); EOS % 2.8 % (0.0-3.0); LYMPH # 1.6 10^3/uL (1.5-5.0); LYMPH % 26.5 % (24.0-44.0); MONO # 0.5 10^3/uL (0.0-0.8); MONO % 7.5 % (2.0-8.0); NEUTROPHILS # 3.8 10^3/uL (1.5-8.5); NEUTROPHILS % 61.1 % (36.0-66.0); PLATELET COUNT, AUTOMATED 232 10^3/uL (150-450)
[2024-12-25 21:09] LABS: ABG BASE EXCESS 10.5 (-2.0-2.0); ABG HCO3 36.8 MMOL/L (22.0-26.0); ABG O2 SATURATION 98.8 % (95.0-99.0); ABG PARTIAL PRESSURE CO2 58.5 mmHg (35.0-45.0); ABG PARTIAL PRESSURE O2 139.4 mmHg (75.0-100.0); ABG STANDARD HCO3 34.3 MMOL/L. (22.0-26.0); ABG TOTAL CO2 38.6 MMOL/L (23.0-31.0); ABG pH (ARTERIAL) 7.417 UNITS (7.350-7.450)
[2024-12-25 21:33] LABS: ALT/SGPT 39 U/L (7.0-40); AST/SGOT 64 U/L (<34); CALCIUM LEVEL 10.7 MG/DL (8.3-10.6); CARBON DIOXIDE LEVEL 39 MMOL/L (20-31); CHLORIDE LEVEL 99 MMOL/L (98-107); CREATININE FOR GFR 1.82 MG/DL (0.55-1.30); GLOMERULAR FILTRATION RATE 30.1 (>45); POTASSIUM SERUM 5.4 MMOL/L (3.5-5.1); SODIUM LEVEL 147 MMOL/L (136-145)
[2024-12-25 22:58] LABS: FREE T4 1.02 NG/DL (0.89-1.76)
[2024-12-25 23:11] LABS: KETONE, URINE AUTO RFX NEGATIVE (NEGATIVE); MUCUS, URINE RFX SMALL (NEGATIVE); NITRITE, URINE AUTO RFX NEGATIVE (NEGATIVE); RBC, URINE AUTO RFX 21 /HPF (0-3); SQUAM EPITHELIAL CELL UR AURFX 0 /HPF (0-6); WBC, URINE AUTO RFX 8 /HPF (0-3)
[2024-12-25 23:12] LABS: LEUKOCYTE ESTERASE UR AUTO RFX TRACE (NEGATIVE)
[2024-12-26] MEDS: NS 500 ML IV ONE (00:05)
[2024-12-26] MEDS ORDERED: MAALOX 30 ML SUSP *UDC PO PRN (03:10)
[2024-12-26 03:21] LABS: VENOUS BASE EXCESS 10.9 (-2.0-2.0); VENOUS HCO3 37.9 MMOL/L (23.0-27.0); VENOUS O2 SATURATION 92.4 % (60.0-80.0); VENOUS PARTIAL PRESSURE CO2 64.3 mmHg (38.0-50.0); VENOUS PARTIAL PRESSURE O2 69.2 mmHg (30.0-50.0); VENOUS PH 7.388 UNITS (7.330-7.430); VENOUS STANDARD HCO3 34.5 MMOL/L; VENOUS TOTAL CO2 39.8 MMOL/L (24.0-28.0)
[2024-12-26 04:01] LABS: PROLACTIN 10.29 NG/ML
[2024-12-26 04:26] LABS: CALCIUM LEVEL 10.0 MG/DL (8.3-10.6); CARBON DIOXIDE LEVEL 39.0 MMOL/L (20-31); CHLORIDE LEVEL 102.0 MMOL/L (98-107); CREATININE FOR GFR 1.8 MG/DL (0.55-1.30); GLOMERULAR FILTRATION RATE 30.5 (>45); MAGNESIUM LEVEL 2.7 MG/DL (1.8-2.4); PHOSPHORUS LEVEL 5.1 MG/DL (2.4-5.1); POTASSIUM SERUM 3.9 MMOL/L (3.5-5.1); SODIUM LEVEL 150.0 MMOL/L (136-145)
[2024-12-26 04:33] LABS: INR 0.97
[2024-12-26] MEDS: LEVOTHYROXINE 50 MCG TABLET (0.05 MG) PO SCH (06:00)
[2024-12-26] MEDS ORDERED: TORS100T PO (08:40)
[2024-12-26] MEDS ORDERED: HOME MED LIST COMPLETE! XX SCH (08:45)
[2024-12-26] MEDS: DOCUSATE SODIUM 100 MG CAPSULE PO SCH (09:00)
[2024-12-26] MEDS: HEPARIN SOD 5000 UNITS/ML 1 ML VIAL/SYRINGE SC SCH (14:02)
[2024-12-26 16:30] VITALS: BP 127/62; TEMP 97.9; O2SAT 98
[2024-12-26] MEDS: ACETAMINOPHEN 325 MG TAB PO PRN (17:11)
[2024-12-26 19:30] VITALS: BP 120/56; TEMP 97.2; O2SAT 97
[2024-12-26 23:01] VITALS: BP 142/66; TEMP 97; O2SAT 95
[2024-12-26] MEDS: OLANZapine INTRAMUSCULAR 10MG VIAL IM ONE (23:07)
[2024-12-27] VITALS (22 sets, daily range): BP systolic 108–161; BP diastolic 55–73; TEMP 97–99; O2SAT 88–96
[2024-12-27 05:59] LABS: PLATELET COUNT, AUTOMATED 210 10^3/uL (150-450)
[2024-12-27 06:31] LABS: ALT/SGPT 34.0 U/L (7.0-40); AST/SGOT 35.0 U/L (<34); CALCIUM LEVEL 9.9 MG/DL (8.3-10.6); CARBON DIOXIDE LEVEL 36.0 MMOL/L (20-31); CHLORIDE LEVEL 105.0 MMOL/L (98-107); CREATININE FOR GFR 1.56 MG/DL (0.55-1.30); GLOMERULAR FILTRATION RATE 36.2 (>45); MAGNESIUM LEVEL 2.8 MG/DL (1.8-2.4); POTASSIUM SERUM 3.5 MMOL/L (3.5-5.1); SODIUM LEVEL 152.0 MMOL/L (136-145)
[2024-12-27 07:50] LABS: VENOUS BASE EXCESS 8.3 (-2.0-2.0); VENOUS HCO3 32.8 MMOL/L (23.0-27.0); VENOUS O2 SATURATION 99.4 % (60.0-80.0); VENOUS PARTIAL PRESSURE CO2 45.3 mmHg (38.0-50.0); VENOUS PARTIAL PRESSURE O2 208.9 mmHg (30.0-50.0); VENOUS PH 7.477 UNITS (7.330-7.430); VENOUS STANDARD HCO3 32.1 MMOL/L; VENOUS TOTAL CO2 34.1 MMOL/L (24.0-28.0)
[2024-12-27] MEDS: NYSTATIN 100,000 UNITS/GM TOPICAL PWD 15 GM TOP SCH (09:00)
[2024-12-27 09:15] LABS: OSMOLALITY SERUM 329.0 MOSM/KG (280-301)
[2024-12-27] MEDS: TOPIRAMATE 25 MG TAB PO SCH (10:40)
[2024-12-27] MEDS: lamoTRIgine 100 MG TAB PO SCH (10:41)
[2024-12-27] MEDS: SODIUM CHLORIDE 23.4% INJ 40.8 MEQ in STERILE WATER LITER BAG 1,050 ML IV SCH (12:59)
[2024-12-27] MEDS: MOM 30 ML SUSPENSION UDC PO PRN (13:01)
[2024-12-27 13:34] LABS: SODIUM,RANDOM URINE 77 MMOL/L
[2024-12-27 16:59] LABS: CALCIUM LEVEL 9.2 MG/DL (8.3-10.6); CARBON DIOXIDE LEVEL 36.0 MMOL/L (20-31); CHLORIDE LEVEL 106.0 MMOL/L (98-107); CREATININE FOR GFR 1.39 MG/DL (0.55-1.30); GLOMERULAR FILTRATION RATE 41.6 (>45); POTASSIUM SERUM 3.4 MMOL/L (3.5-5.1); SODIUM LEVEL 151.0 MMOL/L (136-145)
[2024-12-27] MEDS: ATORVASTATIN 10 MG TAB PO SCH (20:46)
[2024-12-28] VITALS (27 sets, daily range): BP systolic 118–140; BP diastolic 53–72; TEMP 96.8–97.9; O2SAT 90–99
[2024-12-28] MEDS: KCL 20MEQ IN D5W 1000ML 1,000 ML IV SCH (03:14)
[2024-12-28 05:56] LABS: PLATELET COUNT, AUTOMATED 170 10^3/uL (150-450)
[2024-12-28 06:19] LABS: CALCIUM LEVEL 9.0 MG/DL (8.3-10.6); CARBON DIOXIDE LEVEL 34.0 MMOL/L (20-31); CHLORIDE LEVEL 106.0 MMOL/L (98-107); CREATININE FOR GFR 1.31 MG/DL (0.55-1.30); GLOMERULAR FILTRATION RATE 44.7 (>45); MAGNESIUM LEVEL 2.6 MG/DL (1.8-2.4); POTASSIUM SERUM 3.6 MMOL/L (3.5-5.1); SODIUM LEVEL 148.0 MMOL/L (136-145)
[2024-12-28] MEDS: SENNOSIDES/DOCUSATE SODIUM 8.6 MG/50MG TAB PO SCH (21:29)
[2024-12-28] MEDS: MIRALAX *UNIT DOSE* 17 GM PACKET PO SCH (21:30)
[2024-12-29] VITALS (18 sets, daily range): BP systolic 118–153; BP diastolic 59–72; TEMP 96.4–98; O2SAT 89–99
[2024-12-29 05:57] LABS: PLATELET COUNT, AUTOMATED 154 10^3/uL (150-450)
[2024-12-29 06:23] LABS: CALCIUM LEVEL 8.6 MG/DL (8.3-10.6); CARBON DIOXIDE LEVEL 29.0 MMOL/L (20-31); CHLORIDE LEVEL 106.0 MMOL/L (98-107); CREATININE FOR GFR 1.14 MG/DL (0.55-1.30); GLOMERULAR FILTRATION RATE 52.8 (>45); MAGNESIUM LEVEL 2.5 MG/DL (1.8-2.4); POTASSIUM SERUM 4.4 MMOL/L (3.5-5.1); SODIUM LEVEL 144.0 MMOL/L (136-145)
[2024-12-30] VITALS (8 sets, daily range): BP systolic 130–146; BP diastolic 60–63; TEMP 97.5–98.1; O2SAT 90–97
[2024-12-30 06:02] LABS: PLATELET COUNT, AUTOMATED 169 10^3/uL (150-450)
[2024-12-30 06:36] LABS: CALCIUM LEVEL 9.0 MG/DL (8.3-10.6); CARBON DIOXIDE LEVEL 30.0 MMOL/L (20-31); CHLORIDE LEVEL 108.0 MMOL/L (98-107); CREATININE FOR GFR 1.05 MG/DL (0.55-1.30); GLOMERULAR FILTRATION RATE 58.2 (>45); MAGNESIUM LEVEL 2.5 MG/DL (1.8-2.4); POTASSIUM SERUM 4.3 MMOL/L (3.5-5.1); SODIUM LEVEL 145.0 MMOL/L (136-145)
[2024-12-30] MEDS ORDERED: LEVO50TA5 PO (11:35)
[2024-12-30] MEDS ORDERED: TORS20TA2 PO (11:37)
[2024-12-30] MEDS ORDERED: TORS10TA3 PO (11:42)
== END 2024-12-30 18:19 | disposition home or self-care (01) | DRG 189 ==
LOC: M ED 17:57 → M ED INP 12-26 03:09 → M PCU 12-26 16:30
PROVIDERS: ADMIT Student in an Organized Health Care Education/Training Program; ATTEND Student in an Organized Health Care Education/Training Program
DX: J96.22 Acute and chronic respiratory failure with hypercapnia (principal); G93.41 Metabolic encephalopathy; N17.9 Acute kidney failure, unspecified; E87.0 Hyperosmolality and hypernatremia; R44.3 Hallucinations, unspecified; G40.909 Epilepsy, unspecified, not intractable, without status epilepticus; M17.12 Unilateral primary osteoarthritis, left knee; F79 Unspecified intellectual disabilities; E78.5 Hyperlipidemia, unspecified; L89.626 Pressure-induced deep tissue damage of left heel; I87.2 Venous insufficiency (chronic) (peripheral); R68.0 Hypothermia, not associated with low environmental temperature; E03.9 Hypothyroidism, unspecified; I11.0 Hypertensive heart disease with heart failure; J45.909 Unspecified asthma, uncomplicated; I50.9 Heart failure, unspecified; Z99.3 Dependence on wheelchair; Z98.42 Cataract extraction status, left eye; Z79.899 Other long term (current) drug therapy; Z91.018 Allergy to other foods

== ENCOUNTER 2024-12-31 21:06 | Inpatient (IN) | payer MEDICARE, MEDICAID ==
[~2024-12-31] VITALS: Ht 157.5 cm; Wt 105.0 kg
[~2024-12-31 21:06] MED LIST changes: +LEVO50TA5 PO; +TORS10TA3 PO
[2024-12-31 22:01] LABS: VENOUS BASE EXCESS -1.2 (-2.0-2.0); VENOUS HCO3 27.1 MMOL/L (23.0-27.0); VENOUS O2 SATURATION 72.9 % (60.0-80.0); VENOUS PARTIAL PRESSURE CO2 65.4 mmHg (38.0-50.0); VENOUS PARTIAL PRESSURE O2 44.0 mmHg (30.0-50.0); VENOUS PH 7.235 UNITS (7.330-7.430); VENOUS STANDARD HCO3 23.0 MMOL/L; VENOUS TOTAL CO2 29.1 MMOL/L (24.0-28.0)
[2024-12-31 22:06] LABS: BASO # 0.0 10^3/uL (0.0-0.2); BASO % 0.3 % (0.0-1.0); EOS # 0.2 10^3/uL (0.0-0.5); EOS % 2.4 % (0.0-3.0); LYMPH # 1.4 10^3/uL (1.5-5.0); LYMPH % 16.2 % (24.0-44.0); MONO # 0.4 10^3/uL (0.0-0.8); MONO % 4.8 % (2.0-8.0); NEUTROPHILS # 6.5 10^3/uL (1.5-8.5); NEUTROPHILS % 74.8 % (36.0-66.0); PLATELET COUNT, AUTOMATED 178 10^3/uL (150-450)
[2024-12-31 22:31] LABS: ALT/SGPT 31 U/L (7.0-40); AST/SGOT 38 U/L (<34); CALCIUM LEVEL 9.1 MG/DL (8.3-10.6); CARBON DIOXIDE LEVEL 31 MMOL/L (20-31); CHLORIDE LEVEL 109 MMOL/L (98-107); CK-MB VALUE MASS 3.7 NG/ML (<3.6); CREATININE FOR GFR 1.20 MG/DL (0.55-1.30); GLOMERULAR FILTRATION RATE 49.6 (>45); POTASSIUM SERUM 4.0 MMOL/L (3.5-5.1); SODIUM LEVEL 148 MMOL/L (136-145)
[2024-12-31 22:46] LABS: CPK CREATINE PHOSPHOKINASE 71 U/L (34-145); MB/CK RELATIVE INDEX 5.21 (< OR =4)
[2024-12-31 23:47] LABS: KETONE, URINE AUTO RFX NEGATIVE (NEGATIVE); MUCUS, URINE RFX SMALL (NEGATIVE); NITRITE, URINE AUTO RFX NEGATIVE (NEGATIVE); RBC, URINE AUTO RFX 68 /HPF (0-3); SQUAM EPITHELIAL CELL UR AURFX 1 /HPF (0-6)
[2024-12-31 23:51] LABS: LEUKOCYTE ESTERASE UR AUTO RFX 1+ (NEGATIVE); WBC, URINE AUTO RFX 31 /HPF (0-3)
[2025-01-01] MEDS: NS 500 ML IV ONE ×2 (00:25→04:01)
[2025-01-01] MEDS ORDERED: ISOVUE-370 76% 100 ML VIAL As Ordered ONE (01:23)
[2025-01-01] MEDS ORDERED: CEFEPIME 2 GM VIAL As Ordered ONE (04:04)
[2025-01-01] MEDS: CEFEPIME HCL 2 GM in DEXTROSE 5% (D5W) ADV/MINI-BAG 50 ML IV ONE (04:08)
[2025-01-01 08:52] LABS: ABG BASE EXCESS 0.6 (-2.0-2.0); ABG HCO3 27.1 MMOL/L (22.0-26.0); ABG O2 SATURATION 95.4 % (95.0-99.0); ABG PARTIAL PRESSURE CO2 53.4 mmHg (35.0-45.0); ABG PARTIAL PRESSURE O2 85.0 mmHg (75.0-100.0); ABG STANDARD HCO3 25.0 MMOL/L. (22.0-26.0); ABG TOTAL CO2 28.7 MMOL/L (23.0-31.0); ABG pH (ARTERIAL) 7.323 UNITS (7.350-7.450)
[2025-01-01 09:00] VITALS: BP 127/60; TEMP 97.1; O2SAT 94
[2025-01-01] MEDS ORDERED: LEVO50TA5 PO (09:32)
[2025-01-01] MEDS ORDERED: TORS10TA3 PO (09:32)
[2025-01-01] MEDS ORDERED: HOME MED LIST COMPLETE! XX SCH (09:35)
[2025-01-01] MEDS ORDERED: MIRALAX *UNIT DOSE* 17 GM PACKET PO PRN (09:40)
[2025-01-01 10:20] LABS: BASO # 0.0 10^3/uL (0.0-0.2); BASO % 0.6 % (0.0-1.0); EOS # 0.2 10^3/uL (0.0-0.5); EOS % 2.7 % (0.0-3.0); LYMPH # 1.1 10^3/uL (1.5-5.0); LYMPH % 15.9 % (24.0-44.0); MONO # 0.5 10^3/uL (0.0-0.8); MONO % 6.9 % (2.0-8.0); NEUTROPHILS # 5.2 10^3/uL (1.5-8.5); NEUTROPHILS % 72.5 % (36.0-66.0)
[2025-01-01 10:22] LABS: PLATELET COUNT, AUTOMATED 184 10^3/uL (150-450)
[2025-01-01 10:37] LABS: CALCIUM LEVEL 8.6 MG/DL (8.3-10.6); CARBON DIOXIDE LEVEL 26.0 MMOL/L (20-31); CHLORIDE LEVEL 113.0 MMOL/L (98-107); CREATININE FOR GFR 1.03 MG/DL (0.55-1.30); GLOMERULAR FILTRATION RATE 59.6 (>45); POTASSIUM SERUM 4.8 MMOL/L (3.5-5.1); SODIUM LEVEL 149.0 MMOL/L (136-145)
[2025-01-01] MEDS: lamoTRIgine 100 MG TAB PO SCH (10:44)
[2025-01-01] MEDS: DOCUSATE SODIUM 100 MG CAPSULE PO SCH (10:44)
[2025-01-01] MEDS: FUROSEMIDE 40 MG/4 ML VIAL IV ONE (10:45)
[2025-01-01] MEDS: LEVOTHYROXINE 50 MCG TABLET (0.05 MG) PO SCH (10:47)
[2025-01-01] MEDS: TOPIRAMATE 25 MG TAB PO SCH (10:47)
[2025-01-01] MEDS ORDERED: D5W 1000 ML IV ONE (10:55)
[2025-01-01] MEDS: D5W 500 ML IV ONE (11:12)
[2025-01-01] MEDS: ALBUTEROL SULFATE 2.5 MG/0.5 ML INH CONCENTRATE NEB SOLN NEB SCH (12:25)
[2025-01-01] MEDS: BUDESONIDE 0.5 MG/2 ML INHALATION SUSPENSION NEB SCH (12:25)
[2025-01-01 15:40] LABS: CALCIUM LEVEL 8.3 MG/DL (8.3-10.6); CARBON DIOXIDE LEVEL 28.0 MMOL/L (20-31); CHLORIDE LEVEL 109.0 MMOL/L (98-107); CREATININE FOR GFR 1.08 MG/DL (0.55-1.30); GLOMERULAR FILTRATION RATE 56.3 (>45); POTASSIUM SERUM 3.7 MMOL/L (3.5-5.1); SODIUM LEVEL 147.0 MMOL/L (136-145)
[2025-01-01] MEDS: CEFEPIME HCL 2 GM in DEXTROSE 5% (D5W) ADV/MINI-BAG 50 ML IV SCH (15:47)
[2025-01-01 16:00] VITALS: BP 115/55; TEMP 97.1; O2SAT 93
[2025-01-01] MEDS: FUROSEMIDE 40 MG/4 ML VIAL IV SCH (16:57)
[2025-01-01] MEDS: D5W 1000 ML IV ONE (18:45)
[2025-01-01 19:37] VITALS: BP 124/60; TEMP 98; O2SAT 92
[2025-01-01] MEDS: ATORVASTATIN 10 MG TAB PO SCH (20:25)
[2025-01-01] MEDS: POTASSIUM CHLORIDE 10MEQ SR TABLET PO SCH (20:26)
[2025-01-01] MEDS: NYSTATIN 100,000 UNITS/GM TOPICAL PWD 15 GM TOP SCH (20:30)
[2025-01-01 23:58] VITALS: BP 132/55; TEMP 97; O2SAT 92
[2025-01-02 04:14] VITALS: BP 123/56; TEMP 97.8; O2SAT 95
[2025-01-02 05:35] LABS: BASO # 0.0 10^3/uL (0.0-0.2); BASO % 0.5 % (0.0-1.0); EOS # 0.2 10^3/uL (0.0-0.5); EOS % 2.8 % (0.0-3.0); LYMPH # 0.9 10^3/uL (1.5-5.0); LYMPH % 14.6 % (24.0-44.0); MONO # 0.5 10^3/uL (0.0-0.8); MONO % 7.9 % (2.0-8.0); NEUTROPHILS # 4.6 10^3/uL (1.5-8.5); NEUTROPHILS % 71.7 % (36.0-66.0); PLATELET COUNT, AUTOMATED 187 10^3/uL (150-450)
[2025-01-02 06:03] LABS: CALCIUM LEVEL 8.4 MG/DL (8.3-10.6); CARBON DIOXIDE LEVEL 30.0 MMOL/L (20-31); CHLORIDE LEVEL 110.0 MMOL/L (98-107); CREATININE FOR GFR 1.26 MG/DL (0.55-1.30); GLOMERULAR FILTRATION RATE 46.8 (>45); POTASSIUM SERUM 4.6 MMOL/L (3.5-5.1); SODIUM LEVEL 148.0 MMOL/L (136-145)
[2025-01-02 06:41] VITALS: BP 100/50; TEMP 98; O2SAT 92
[2025-01-02] MEDS ORDERED: ACETAMINOPHEN 325 MG TAB PO PRN (13:15)
[2025-01-02 13:33] VITALS: BP 105/63; TEMP 97.2; O2SAT 94
[2025-01-02 16:00] VITALS: BP 110/54; TEMP 97.1; O2SAT 93
[2025-01-02 20:06] VITALS: BP 97/56; TEMP 97; O2SAT 91
[2025-01-02 23:53] VITALS: BP 140/64; TEMP 97.4; O2SAT 92
[2025-01-03] VITALS (7 sets, daily range): BP systolic 113–145; BP diastolic 55–68; TEMP 97.4–98; O2SAT 90–99
[2025-01-03 06:08] LABS: BASO # 0.0 10^3/uL (0.0-0.2); BASO % 0.3 % (0.0-1.0); EOS # 0.2 10^3/uL (0.0-0.5); EOS % 2.6 % (0.0-3.0); LYMPH # 1.4 10^3/uL (1.5-5.0); LYMPH % 21.6 % (24.0-44.0); MONO # 0.5 10^3/uL (0.0-0.8); MONO % 8.3 % (2.0-8.0); NEUTROPHILS # 4.3 10^3/uL (1.5-8.5); NEUTROPHILS % 65.1 % (36.0-66.0); PLATELET COUNT, AUTOMATED 189 10^3/uL (150-450)
[2025-01-03 06:28] LABS: CALCIUM LEVEL 8.6 MG/DL (8.3-10.6); CARBON DIOXIDE LEVEL 29.0 MMOL/L (20-31); CHLORIDE LEVEL 108.0 MMOL/L (98-107); CREATININE FOR GFR 1.13 MG/DL (0.55-1.30); GLOMERULAR FILTRATION RATE 53.3 (>45); POTASSIUM SERUM 4.5 MMOL/L (3.5-5.1); SODIUM LEVEL 145.0 MMOL/L (136-145)
[2025-01-03] MEDS: FUROSEMIDE 40 MG/4 ML VIAL IV SCH (08:18)
[2025-01-03] MEDS: ASCORBIC ACID 500 MG TAB PO SCH (08:19)
[2025-01-03] MEDS: FERROUS SULFATE 325 MG TAB PO SCH (08:20)
[2025-01-03] MEDS: NITROFURANTOIN 100 MG CAP PO SCH (09:03)
[2025-01-04 04:41] VITALS: BP 134/62; TEMP 98.3; O2SAT 98
[2025-01-04 07:27] VITALS: BP 123/58; TEMP 98.6; O2SAT 92
[2025-01-04 07:39] LABS: BASO # 0.0 10^3/uL (0.0-0.2); BASO % 0.6 % (0.0-1.0); EOS # 0.2 10^3/uL (0.0-0.5); EOS % 3.0 % (0.0-3.0); LYMPH # 1.3 10^3/uL (1.5-5.0); LYMPH % 20.4 % (24.0-44.0); MONO # 0.5 10^3/uL (0.0-0.8); MONO % 7.8 % (2.0-8.0); NEUTROPHILS # 4.4 10^3/uL (1.5-8.5); NEUTROPHILS % 66.8 % (36.0-66.0); PLATELET COUNT, AUTOMATED 217 10^3/uL (150-450)
[2025-01-04 08:02] LABS: CALCIUM LEVEL 9.1 MG/DL (8.3-10.6); CARBON DIOXIDE LEVEL 30.0 MMOL/L (20-31); CHLORIDE LEVEL 110.0 MMOL/L (98-107); CREATININE FOR GFR 1.04 MG/DL (0.55-1.30); GLOMERULAR FILTRATION RATE 58.9 (>45); POTASSIUM SERUM 5.0 MMOL/L (3.5-5.1); SODIUM LEVEL 148.0 MMOL/L (136-145)
[2025-01-04] MEDS: POTASSIUM CHLORIDE 10MEQ SR TABLET PO SCH (09:47)
[2025-01-04 12:00] VITALS: BP 123/68; TEMP 98; O2SAT 94
[2025-01-04 15:50] VITALS: BP 130/60; TEMP 97.7; O2SAT 96
[2025-01-04 19:57] VITALS: BP 126/61; TEMP 98.2; O2SAT 100
[2025-01-04 23:34] VITALS: BP 139/62; TEMP 97; O2SAT 91
[2025-01-05 03:47] VITALS: BP 131/63; TEMP 98; O2SAT 91
[2025-01-05 06:32] LABS: CALCIUM LEVEL 8.6 MG/DL (8.3-10.6); CARBON DIOXIDE LEVEL 26.0 MMOL/L (20-31); CHLORIDE LEVEL 109.0 MMOL/L (98-107); CREATININE FOR GFR 1.09 MG/DL (0.55-1.30); GLOMERULAR FILTRATION RATE 55.7 (>45); POTASSIUM SERUM 4.8 MMOL/L (3.5-5.1); SODIUM LEVEL 146.0 MMOL/L (136-145)
[2025-01-05 07:41] VITALS: BP 133/64; TEMP 97.1; O2SAT 92
[2025-01-05 09:12] LABS: BASO # 0.0 10^3/uL (0.0-0.2); BASO % 0.6 % (0.0-1.0); EOS # 0.2 10^3/uL (0.0-0.5); EOS % 3.2 % (0.0-3.0); LYMPH # 1.7 10^3/uL (1.5-5.0); LYMPH % 23.2 % (24.0-44.0); MONO # 0.6 10^3/uL (0.0-0.8); MONO % 8.8 % (2.0-8.0); NEUTROPHILS # 4.5 10^3/uL (1.5-8.5); NEUTROPHILS % 63.1 % (36.0-66.0); PLATELET COUNT, AUTOMATED 207 10^3/uL (150-450)
[2025-01-05] MEDS ORDERED: CEFP200T PO (09:49)
[2025-01-05] MEDS ORDERED: MACR100C43 PO (09:49)
[2025-01-05] MEDS ORDERED: ALBU2.5V10 NEB (09:49)
[2025-01-05] MEDS ORDERED: BUDE0.5S6 NEB (09:49)
[2025-01-05 10:15] VITALS: BP 133/64
[2025-01-05] MEDS: CEFPODOXIME PROXETIL 200 MG TABLET PO SCH (10:16)
== END 2025-01-05 13:11 | disposition home or self-care (01) | DRG 871 ==
LOC: M ED 21:06 → M ED INP 01-01 07:52 → M PCU 01-01 08:50
PROVIDERS: ADMIT Internal Medicine Nephrology; ATTEND Internal Medicine Nephrology
DX: A41.9 Sepsis, unspecified organism (principal); J18.9 Pneumonia, unspecified organism; I50.33 Acute on chronic diastolic (congestive) heart failure; J96.22 Acute and chronic respiratory failure with hypercapnia; J96.21 Acute and chronic respiratory failure with hypoxia; N39.0 Urinary tract infection, site not specified; E66.2 Morbid (severe) obesity with alveolar hypoventilation; E87.0 Hyperosmolality and hypernatremia; Z68.42 Body mass index [BMI] 45.0-49.9, adult; N17.9 Acute kidney failure, unspecified; F79 Unspecified intellectual disabilities; J45.909 Unspecified asthma, uncomplicated; M17.12 Unilateral primary osteoarthritis, left knee; B95.2 Enterococcus as the cause of diseases classified elsewhere; I11.0 Hypertensive heart disease with heart failure; E78.5 Hyperlipidemia, unspecified; I87.2 Venous insufficiency (chronic) (peripheral); Z99.3 Dependence on wheelchair; Z79.890 Hormone replacement therapy; Z79.899 Other long term (current) drug therapy; Z91.018 Allergy to other foods

== ENCOUNTER → 2025-01-07 | Outpatient (CLI) | payer MEDICARE, MEDICAID ==
[~2025-01-07] MED LIST changes: +BUDE0.5S6 NEB; +CEFP200T PO; +MACR100C43 PO
== END ==
LOC: M ADAMS 14:55
PROVIDERS: ATTEND Physician Assistant
DX: I50.31 Acute diastolic (congestive) heart failure (principal)

== ENCOUNTER → 2025-01-07 | Outpatient (REF) | payer MEDICARE, MEDICAID ==
[2025-01-07 17:13] LABS: ALT/SGPT 22.0 U/L (7.0-40); AST/SGOT 21.0 U/L (<34); CALCIUM LEVEL 10.3 MG/DL (8.3-10.6); CARBON DIOXIDE LEVEL 31.0 MMOL/L (20-31); CHLORIDE LEVEL 105.0 MMOL/L (98-107); CREATININE FOR GFR 1.47 MG/DL (0.55-1.30); GLOMERULAR FILTRATION RATE 38.9 (>45); POTASSIUM SERUM 4.2 MMOL/L (3.5-5.1); SODIUM LEVEL 149.0 MMOL/L (136-145)
== END ==
LOC: M SFHCADAM 14:27
PROVIDERS: ATTEND Physician Assistant
DX: I50.31 Acute diastolic (congestive) heart failure (principal); J96.02 Acute respiratory failure with hypercapnia; N39.0 Urinary tract infection, site not specified

== ENCOUNTER → 2025-01-27 | Outpatient (CLI) | payer MEDICARE, MEDICAID ==
[2025-01-27 14:06] LABS: PLATELET COUNT, AUTOMATED 150 10^3/uL (150-450)
[2025-01-27 14:54] LABS: FREE T4 1.21 NG/DL (0.89-1.76)
[2025-01-27 15:02] LABS: ALT/SGPT 33.0 U/L (7.0-40); AST/SGOT 31.0 U/L (<34); CALCIUM LEVEL 10.0 MG/DL (8.3-10.6); CARBON DIOXIDE LEVEL 34.0 MMOL/L (20-31); CHLORIDE LEVEL 104.0 MMOL/L (98-107); CHOLESTEROL LEVEL 142.0 MG/DL (<200); CHOLESTEROL RISK RATIO 2.04 (<5); CREATININE FOR GFR 1.35 MG/DL (0.55-1.30); GLOMERULAR FILTRATION RATE 43.1 (>45); LDL CHOLESTEROL 60.1 MG/DL (<100); NON-HDL-C 72.7 MG/DL; POTASSIUM SERUM 4.2 MMOL/L (3.5-5.1); SODIUM LEVEL 146.0 MMOL/L (136-145); TRIGLYCERIDES LEVEL 63.0 MG/DL (<150)
== END ==
LOC: M WUC 09:22
PROVIDERS: ATTEND Family Medicine
DX: I25.10 Atherosclerotic heart disease of native coronary artery without angina pectoris (principal); E07.9 Disorder of thyroid, unspecified

== ENCOUNTER → 2025-02-05 | Outpatient (REF) | payer MEDICARE, MEDICAID ==
[2025-02-05 18:13] LABS: APPEARANCE, URINE HAZY (CLEAR); BACTERIA, URINE AUTO NEGATIVE (NEGATIVE); BILIRUBIN, URINE AUTO NEGATIVE (NEGATIVE); BLOOD, URINE BLOOD 2+ (NEGATIVE); GLUCOSE, URINE (UA) AUTO NEGATIVE (NEGATIVE); KETONE, URINE AUTO NEGATIVE (NEGATIVE); LEUKOCYTE ESTERASE, URINE AUTO TRACE (NEGATIVE); MUCUS, URINE SMALL (NEGATIVE); NITRITE, URINE AUTO NEGATIVE (NEGATIVE); PROTEIN, URINE AUTO NEGATIVE (NEGATIVE); RBC, URINE AUTO 28 /HPF (0-3); SPECIFIC GRAVITY URINE AUTO 1.008 (1.002-1.035); SQUAMOUS EPITHELIAL CELL UR AU 1 /HPF (0-6); UROBILINOGEN, URINE AUTO 0.2 mg/dL (0.0-2.0); WBC, URINE AUTO 8 /HPF (0-3)
== END ==
LOC: M SFHCADAM 17:02
PROVIDERS: ATTEND Family Medicine
DX: R41.82 Altered mental status, unspecified (principal); Z87.440 Personal history of urinary (tract) infections

== ENCOUNTER → 2025-02-13 | Outpatient (CLI) | payer MEDICARE, MEDICAID ==
[~2025-02-13] MED LIST changes: +CEPH250REC PO; +JARD1TAB PO; +LASI20TA3 PO; +POTA-298 PO
== END ==
LOC: M EKG 12:56
PROVIDERS: ATTEND Internal Medicine Cardiovascular Disease
DX: I11.0 Hypertensive heart disease with heart failure (principal); R94.39 Abnormal result of other cardiovascular function study

== ENCOUNTER → 2025-02-15 | Outpatient (CLI) | payer MEDICARE, MEDICAID ==
[~2025-02-15] MED LIST changes: -JARD1TAB PO; -LASI20TA3 PO; -POTA-298 PO
== END ==
LOC: M LAB 10:47
PROVIDERS: ATTEND Allergy & Immunology Allergy
DX: T78.0 Anaphylactic reaction due to food (principal)

== ENCOUNTER 2025-02-16 13:26 | Emergency (ER) | payer MEDICARE, MEDICAID ==
[~2025-02-16] VITALS: Ht 152.4 cm; Wt 114.4 kg
[~2025-02-16 13:26] MED LIST changes: -CEPH250REC PO
[2025-02-16 14:02] LABS: VENOUS BASE EXCESS 4.1 (-2.0-2.0); VENOUS HCO3 30.1 MMOL/L (23.0-27.0); VENOUS O2 SATURATION 93.5 % (60.0-80.0); VENOUS PARTIAL PRESSURE CO2 53.0 mmHg (38.0-50.0); VENOUS PARTIAL PRESSURE O2 69.7 mmHg (30.0-50.0); VENOUS PH 7.372 UNITS (7.330-7.430); VENOUS STANDARD HCO3 28.1 MMOL/L; VENOUS TOTAL CO2 31.7 MMOL/L (24.0-28.0)
[2025-02-16 14:04] LABS: BASO # 0.0 10^3/uL (0.0-0.2); BASO % 0.5 % (0.0-1.0); EOS # 0.1 10^3/uL (0.0-0.5); EOS % 1.6 % (0.0-3.0); LYMPH # 1.3 10^3/uL (1.5-5.0); LYMPH % 22.7 % (24.0-44.0); MONO # 0.5 10^3/uL (0.0-0.8); MONO % 9.3 % (2.0-8.0); NEUTROPHILS # 3.6 10^3/uL (1.5-8.5); NEUTROPHILS % 65.4 % (36.0-66.0); PLATELET COUNT, AUTOMATED 172 10^3/uL (150-450)
[2025-02-16 14:36] LABS: ALT/SGPT 34 U/L (7.0-40); AST/SGOT 57 U/L (<34); CALCIUM LEVEL 10.0 MG/DL (8.3-10.6); CARBON DIOXIDE LEVEL 33 MMOL/L (20-31); CHLORIDE LEVEL 103 MMOL/L (98-107); CREATININE FOR GFR 1.65 MG/DL (0.55-1.30); GLOMERULAR FILTRATION RATE 33.9 (>45); POTASSIUM SERUM 4.9 MMOL/L (3.5-5.1); SODIUM LEVEL 148 MMOL/L (136-145); THYROXINE (T4) 7.7 UG/DL (4.5-10.9)
[2025-02-16 15:23] LABS: ABG BASE EXCESS 7.4 (-2.0-2.0); ABG HCO3 33.3 MMOL/L (22.0-26.0); ABG O2 SATURATION 92.5 % (95.0-99.0); ABG PARTIAL PRESSURE CO2 54.9 mmHg (35.0-45.0); ABG PARTIAL PRESSURE O2 65.0 mmHg (75.0-100.0); ABG STANDARD HCO3 31.1 MMOL/L. (22.0-26.0); ABG TOTAL CO2 35.0 MMOL/L (23.0-31.0); ABG pH (ARTERIAL) 7.401 UNITS (7.350-7.450)
[2025-02-16] MEDS ORDERED: PRED20TA PO (15:50)
[2025-02-16 16:47] VITALS: BP 137/66; TEMP 97.6; O2SAT 94
[2025-02-17] MEDS ORDERED: CEPH250REC PO (20:21)
== END 2025-02-16 17:22 | disposition home or self-care (01) ==
LOC: M ED 13:26
DX: J20.6 Acute bronchitis due to rhinovirus (principal); J96.01 Acute respiratory failure with hypoxia; J96.02 Acute respiratory failure with hypercapnia; E66.2 Morbid (severe) obesity with alveolar hypoventilation; I10 Essential (primary) hypertension; E78.5 Hyperlipidemia, unspecified; J45.909 Unspecified asthma, uncomplicated; Z91.018 Allergy to other foods; Z79.1 Long term (current) use of non-steroidal anti-inflammatories (NSAID); Z79.51 Long term (current) use of inhaled steroids; Z79.2 Long term (current) use of antibiotics; Z79.899 Other long term (current) drug therapy; Z79.52 Long term (current) use of systemic steroids; Z79.810 Long term (current) use of selective estrogen receptor modulators (SERMs)
CPT/HCPCS: 36600; 71045; 71250; 80048; 80076; 82803; 83880; 84436; 84443; 85025; 87486; 87581; 87633; 87798; 93005; 93041; 94760; 96374; 99285; J1100

== ENCOUNTER 2025-02-17 16:08 | Emergency (ER) | payer MEDICARE, MEDICAID ==
[~2025-02-17] VITALS: Ht 152.4 cm; Wt 114.0 kg
[2025-02-17 18:00] VITALS: TEMP 96.6
[2025-02-17] MEDS ORDERED: LIDOCAINE 1% SDV 30 ML VIAL SC SCH (18:00)
[2025-02-17] MEDS: LIDOCAINE 1% MDV 20 ML VIAL SC ONE (18:31)
[2025-02-17] MEDS: DERMABOND TOPICAL SKIN ADHESIVE TOP ONE (19:17)
[2025-02-17] MEDS: TETANUS/DIPHTH/ACEL. PERTUSSIS 0.5 ML SYR IM ONE (19:28)
[2025-02-17] MEDS ORDERED: CEPHALEXIN 500 MG CAP PO ONE (19:35)
[2025-02-17 20:00] VITALS: O2SAT 96
[2025-02-17 20:16] VITALS: BP 152/68
[2025-02-17] MEDS ORDERED: CEPH250REC PO (20:21)
[2025-02-17] MEDS: CEPHALEXIN SUSP POWDER 250 MG/5 ML BTL 100 ML PO ONE (20:37)
== END 2025-02-17 21:08 | disposition home or self-care (01) ==
LOC: M ED 16:08 → EDBD 16:08 → M ED 21:08
DX: S92.422B Displaced fracture of distal phalanx of left great toe, initial encounter for open fracture (principal); S91.114A Laceration without foreign body of right lesser toe(s) without damage to nail, initial encounter; Y92.9 Unspecified place or not applicable; Y93.9 Activity, unspecified; Y99.9 Unspecified external cause status; W23.2XXA Caught, crushed, jammed or pinched between a moving and stationary object, initial encounter; Z23 Encounter for immunization; I10 Essential (primary) hypertension; G40.909 Epilepsy, unspecified, not intractable, without status epilepticus; Z91.018 Allergy to other foods; Z79.1 Long term (current) use of non-steroidal anti-inflammatories (NSAID); Z79.51 Long term (current) use of inhaled steroids; Z79.52 Long term (current) use of systemic steroids; Z79.899 Other long term (current) drug therapy; Z79.810 Long term (current) use of selective estrogen receptor modulators (SERMs)

== ENCOUNTER 2025-02-19 11:57 | Inpatient (IN) | payer MEDICARE, MEDICAID ==
[~2025-02-19] VITALS: Ht 149.9 cm; Wt 107.8 kg
[~2025-02-19 11:57] MED LIST changes: +CEPH250REC PO
[2025-02-19 13:27] LABS: BASO # 0.0 10^3/uL (0.0-0.2); BASO % 0.4 % (0.0-1.0); EOS # 0.1 10^3/uL (0.0-0.5); EOS % 1.4 % (0.0-3.0); LYMPH # 1.0 10^3/uL (1.5-5.0); LYMPH % 14.3 % (24.0-44.0); MONO # 0.3 10^3/uL (0.0-0.8); MONO % 4.3 % (2.0-8.0); NEUTROPHILS # 5.7 10^3/uL (1.5-8.5); NEUTROPHILS % 78.5 % (36.0-66.0); PLATELET COUNT, AUTOMATED 186 10^3/uL (150-450)
[2025-02-19 13:59] LABS: ALT/SGPT 28 U/L (7.0-40); AST/SGOT 25 U/L (<34); CALCIUM LEVEL 10.8 MG/DL (8.3-10.6); CARBON DIOXIDE LEVEL 33 MMOL/L (20-31); CHLORIDE LEVEL 106 MMOL/L (98-107); CREATININE FOR GFR 1.61 MG/DL (0.55-1.30); GLOMERULAR FILTRATION RATE 34.9 (>45); POTASSIUM SERUM 4.0 MMOL/L (3.5-5.1); SODIUM LEVEL 151 MMOL/L (136-145)
[2025-02-19 14:57] LABS: KETONE, URINE AUTO RFX NEGATIVE (NEGATIVE); MUCUS, URINE RFX SMALL (NEGATIVE); NITRITE, URINE AUTO RFX NEGATIVE (NEGATIVE); RBC, URINE AUTO RFX TNTC /HPF (0-3); SQUAM EPITHELIAL CELL UR AURFX 0 /HPF (0-6)
[2025-02-19 15:00] LABS: LEUKOCYTE ESTERASE UR AUTO RFX 1+ (NEGATIVE); WBC, URINE AUTO RFX 40 /HPF (0-3)
[2025-02-19] MEDS: cefTRIAXone SOD 1 GM in DEXTROSE 5% (D5W) ADV/MINI-BAG 50 ML IV ONE (15:54)
[2025-02-19] MEDS ORDERED: JARD1TAB PO (16:03)
[2025-02-19] MEDS ORDERED: MAALOX 30 ML SUSP *UDC PO PRN (16:10)
[2025-02-19] MEDS ORDERED: MOM 30 ML SUSPENSION UDC PO PRN (16:10)
[2025-02-19] MEDS ORDERED: HOME MED LIST COMPLETE! XX SCH (16:20)
[2025-02-19] MEDS ORDERED: ALBUTEROL SULFATE 2.5 MG/0.5 ML INH CONCENTRATE NEB SOLN INH PRN (16:40)
[2025-02-19] MEDS: LevoFLOXacin IV 750 MG in IV 1 EA IV SCH (16:49)
[2025-02-19] MEDS ORDERED: DEXTROSE 50% 50 ML SYRINGE IV PRN (18:10)
[2025-02-19] MEDS ORDERED: GLUCAGON INJ 1 MG VIAL SC PRN (18:10)
[2025-02-19] MEDS ORDERED: GLUCOSE 4 GM CHEW PO PRN (18:10)
[2025-02-19] MEDS: D5W 1,000 ML IV SCH (19:01)
[2025-02-19 19:03] LABS: CK-MB VALUE MASS 6.3 NG/ML (<3.6)
[2025-02-19 19:05] LABS: CPK CREATINE PHOSPHOKINASE 62.0 U/L (34-145); MB/CK RELATIVE INDEX 10.16 (< OR =4)
[2025-02-19] MEDS: BUDESONIDE 0.5 MG/2 ML INHALATION SUSPENSION NEB SCH (20:00)
[2025-02-19] MEDS: ALBUTEROL SULFATE 2.5 MG/0.5 ML INH CONCENTRATE NEB SOLN INH SCH (20:00)
[2025-02-19] MEDS: NYSTATIN 100,000 UNITS/GM TOPICAL PWD 15 GM TOP SCH (21:00)
[2025-02-19] MEDS ORDERED: guaiFENesin ER TABLET 600 MG TAB PO SCH (21:00)
[2025-02-19 21:20] VITALS: BP 122/63; TEMP 96.8; O2SAT 96
[2025-02-19] MEDS: FERROUS SULFATE 325 MG TAB PO SCH (22:16)
[2025-02-19] MEDS: DOCUSATE SODIUM 100 MG CAPSULE PO SCH (22:27)
[2025-02-19] MEDS ORDERED: guaiFENesin SYRUP 200 MG/10 ML UDC PO PRN (22:40)
[2025-02-19] MEDS: TOPIRAMATE 25 MG TAB PO SCH (23:05)
[2025-02-19] MEDS: DOCUSATE SOD LIQ 100 MG/10 ML UDC PO SCH (23:05)
[2025-02-19] MEDS: CALCIUM/VITAMIN D 500 MG TAB PO SCH (23:05)
[2025-02-19] MEDS: HEPARIN SOD 5000 UNITS/ML 1 ML VIAL/SYRINGE SC SCH (23:05)
[2025-02-19] MEDS: lamoTRIgine 100 MG TAB PO SCH (23:05)
[2025-02-19] MEDS: ATORVASTATIN 10 MG TAB PO SCH (23:05)
[2025-02-19 23:30] VITALS: TEMP 98.4
[2025-02-20] VITALS (7 sets, daily range): BP systolic 104–159; BP diastolic 48–88; TEMP 97.3–98.4; O2SAT 90–95
[2025-02-20 05:24] LABS: BASO # 0.0 10^3/uL (0.0-0.2); BASO % 0.3 % (0.0-1.0); EOS # 0.0 10^3/uL (0.0-0.5); EOS % 0.0 % (0.0-3.0); LYMPH # 0.7 10^3/uL (1.5-5.0); LYMPH % 11.9 % (24.0-44.0); MONO # 0.2 10^3/uL (0.0-0.8); MONO % 2.9 % (2.0-8.0); NEUTROPHILS # 5.2 10^3/uL (1.5-8.5); NEUTROPHILS % 83.1 % (36.0-66.0); PLATELET COUNT, AUTOMATED 190 10^3/uL (150-450)
[2025-02-20 05:41] LABS: ALT/SGPT 25.0 U/L (7.0-40); AST/SGOT 22.0 U/L (<34); C REACTIVE PROTEIN QUANTITATIV 0.74 MG/DL (<1.0); CALCIUM LEVEL 10.0 MG/DL (8.3-10.6); CARBON DIOXIDE LEVEL 33.0 MMOL/L (20-31); CHLORIDE LEVEL 106.0 MMOL/L (98-107); CREATININE FOR GFR 1.5 MG/DL (0.55-1.30); GLOMERULAR FILTRATION RATE 38.0 (>45); MAGNESIUM LEVEL 2.2 MG/DL (1.8-2.4); POTASSIUM SERUM 4.5 MMOL/L (3.5-5.1); SODIUM LEVEL 147.0 MMOL/L (136-145)
[2025-02-20] MEDS: LEVOTHYROXINE 50 MCG TABLET (0.05 MG) PO SCH (06:36)
[2025-02-20] MEDS ORDERED: DOCUSATE SOD LIQ 100 MG/10 ML UDC GT SCH (09:00)
[2025-02-20] MEDS: MULTIVITAMINS/MINERALS THERAP 1 TAB PO SCH (09:28)
[2025-02-20] MEDS: VITAMIN D 1,000 INTERNATIONAL UNITS TABLET PO SCH (09:28)
[2025-02-20] MEDS: ASCORBIC ACID 500 MG TAB PO SCH (09:29)
[2025-02-20] MEDS: FUROSEMIDE injection 100 MG, VIAL 2 BAG 13MM ADAPTER 1 EACH in NS 100 ML IV SCH (11:52)
[2025-02-21] VITALS (7 sets, daily range): BP systolic 109–142; BP diastolic 53–70; TEMP 97.2–98.1; O2SAT 88–99
[2025-02-21 06:04] LABS: BASO # 0.0 10^3/uL (0.0-0.2); BASO % 0.5 % (0.0-1.0); EOS # 0.0 10^3/uL (0.0-0.5); EOS % 0.2 % (0.0-3.0); LYMPH # 1.1 10^3/uL (1.5-5.0); LYMPH % 17.1 % (24.0-44.0); MONO # 0.3 10^3/uL (0.0-0.8); MONO % 4.6 % (2.0-8.0); NEUTROPHILS # 4.8 10^3/uL (1.5-8.5); NEUTROPHILS % 74.9 % (36.0-66.0); PLATELET COUNT, AUTOMATED 188 10^3/uL (150-450)
[2025-02-21 06:20] LABS: ALT/SGPT 27 U/L (7.0-40); AST/SGOT 34 U/L (<34); C REACTIVE PROTEIN QUANTITATIV < 0.50 MG/DL (<1.0); CALCIUM LEVEL 9.4 MG/DL (8.3-10.6); CARBON DIOXIDE LEVEL 35 MMOL/L (20-31); CHLORIDE LEVEL 98 MMOL/L (98-107); CREATININE FOR GFR 1.62 MG/DL (0.55-1.30); GLOMERULAR FILTRATION RATE 34.6 (>45); MAGNESIUM LEVEL 2.1 MG/DL (1.8-2.4); POTASSIUM SERUM 4.4 MMOL/L (3.5-5.1); SODIUM LEVEL 143 MMOL/L (136-145)
[2025-02-21] MEDS: CEPHALEXIN SUSP POWDER 250 MG/5 ML BTL 100 ML PO SCH (14:57)
[2025-02-22] VITALS (7 sets, daily range): BP systolic 96–136; BP diastolic 58–66; TEMP 97.2–97.7; O2SAT 85–95
[2025-02-22] MEDS: LEVOTHYROXINE 50 MCG TABLET (0.05 MG) PO SCH (06:26)
[2025-02-22 06:34] LABS: BASO # 0.0 10^3/uL (0.0-0.2); BASO % 0.4 % (0.0-1.0); EOS # 0.0 10^3/uL (0.0-0.5); EOS % 0.0 % (0.0-3.0); LYMPH # 1.4 10^3/uL (1.5-5.0); LYMPH % 17.0 % (24.0-44.0); MONO # 0.3 10^3/uL (0.0-0.8); MONO % 3.4 % (2.0-8.0); NEUTROPHILS # 6.4 10^3/uL (1.5-8.5); NEUTROPHILS % 77.3 % (36.0-66.0); PLATELET COUNT, AUTOMATED 193 10^3/uL (150-450)
[2025-02-22 07:06] LABS: C REACTIVE PROTEIN QUANTITATIV < 0.50 MG/DL (<1.0)
[2025-02-22 07:09] LABS: ALT/SGPT 21 U/L (7.0-40); AST/SGOT 16 U/L (<34); CALCIUM LEVEL 9.6 MG/DL (8.3-10.6); CARBON DIOXIDE LEVEL 39 MMOL/L (20-31); CHLORIDE LEVEL 96 MMOL/L (98-107); CREATININE FOR GFR 1.63 MG/DL (0.55-1.30); GLOMERULAR FILTRATION RATE 34.4 (>45); MAGNESIUM LEVEL 2.2 MG/DL (1.8-2.4); POTASSIUM SERUM 3.5 MMOL/L (3.5-5.1); SODIUM LEVEL 146 MMOL/L (136-145)
[2025-02-22] MEDS: POTASSIUM CHLORIDE 10MEQ SR TABLET PO ONE (13:02)
[2025-02-22] MEDS: predniSONE 20 MG TAB PO ONE (14:26)
[2025-02-22] MEDS: ACETAMINOPHEN 325 MG TAB PO PRN (14:33)
[2025-02-23 04:00] VITALS: BP 113/61; TEMP 97.9; O2SAT 96
[2025-02-23 06:44] LABS: BASO # 0.0 10^3/uL (0.0-0.2); BASO % 0.4 % (0.0-1.0); EOS # 0.1 10^3/uL (0.0-0.5); EOS % 1.0 % (0.0-3.0); LYMPH # 2.8 10^3/uL (1.5-5.0); LYMPH % 30.7 % (24.0-44.0); MONO # 0.8 10^3/uL (0.0-0.8); MONO % 8.4 % (2.0-8.0); NEUTROPHILS # 5.2 10^3/uL (1.5-8.5); NEUTROPHILS % 56.6 % (36.0-66.0); PLATELET COUNT, AUTOMATED 195 10^3/uL (150-450)
[2025-02-23 07:15] LABS: C REACTIVE PROTEIN QUANTITATIV < 0.50 MG/DL (<1.0)
[2025-02-23 07:16] LABS: ALT/SGPT 18 U/L (7.0-40); AST/SGOT 17 U/L (<34); CALCIUM LEVEL 9.7 MG/DL (8.3-10.6); CARBON DIOXIDE LEVEL 38 MMOL/L (20-31); CHLORIDE LEVEL 104 MMOL/L (98-107); CREATININE FOR GFR 1.53 MG/DL (0.55-1.30); GLOMERULAR FILTRATION RATE 37.1 (>45); MAGNESIUM LEVEL 2.5 MG/DL (1.8-2.4); POTASSIUM SERUM 4.1 MMOL/L (3.5-5.1); SODIUM LEVEL 150 MMOL/L (136-145)
[2025-02-23] MEDS: predniSONE 20 MG TAB PO SCH (09:14)
[2025-02-23] MEDS: D5W 1,000 ML IV SCH (09:15)
[2025-02-23 12:00] VITALS: BP 108/59; TEMP 97.9; O2SAT 94
[2025-02-23] MEDS: FUROSEMIDE 40 MG/4 ML VIAL IV SCH (13:37)
[2025-02-23 20:54] VITALS: BP 106/58; TEMP 97.5; O2SAT 95
[2025-02-24 03:55] VITALS: BP 113/62; TEMP 97.3; O2SAT 96
[2025-02-24 08:41] LABS: BASO # 0.0 10^3/uL (0.0-0.2); BASO % 0.4 % (0.0-1.0); EOS # 0.3 10^3/uL (0.0-0.5); EOS % 2.5 % (0.0-3.0); LYMPH # 4.4 10^3/uL (1.5-5.0); LYMPH % 40.7 % (24.0-44.0); MONO # 0.8 10^3/uL (0.0-0.8); MONO % 6.9 % (2.0-8.0); NEUTROPHILS # 5.2 10^3/uL (1.5-8.5); NEUTROPHILS % 47.5 % (36.0-66.0); PLATELET COUNT, AUTOMATED 189 10^3/uL (150-450)
[2025-02-24 09:05] LABS: C REACTIVE PROTEIN QUANTITATIV < 0.50 MG/DL (<1.0)
[2025-02-24 09:12] LABS: ALT/SGPT 19 U/L (7.0-40); AST/SGOT 21 U/L (<34); CALCIUM LEVEL 9.2 MG/DL (8.3-10.6); CARBON DIOXIDE LEVEL 38 MMOL/L (20-31); CHLORIDE LEVEL 97 MMOL/L (98-107); CREATININE FOR GFR 1.54 MG/DL (0.55-1.30); GLOMERULAR FILTRATION RATE 36.8 (>45); MAGNESIUM LEVEL 2.1 MG/DL (1.8-2.4); POTASSIUM SERUM 3.3 MMOL/L (3.5-5.1); SODIUM LEVEL 144 MMOL/L (136-145)
[2025-02-24] MEDS: POTASSIUM CHLORIDE 10MEQ SR TABLET PO SCH (10:56)
[2025-02-24 12:00] VITALS: BP 112/59; TEMP 97.1; O2SAT 93
[2025-02-24] MEDS: FUROSEMIDE 100 MG/10 ML VIAL IV SCH (13:35)
[2025-02-24 19:57] VITALS: BP 126/64; TEMP 97.7; O2SAT 94
[2025-02-25 03:26] VITALS: BP 144/68; TEMP 97.5; O2SAT 96
[2025-02-25 06:44] LABS: BASO # 0.0 10^3/uL (0.0-0.2); BASO % 0.3 % (0.0-1.0); EOS # 0.3 10^3/uL (0.0-0.5); EOS % 2.5 % (0.0-3.0); LYMPH # 3.5 10^3/uL (1.5-5.0); LYMPH % 33.1 % (24.0-44.0); MONO # 0.8 10^3/uL (0.0-0.8); MONO % 8.0 % (2.0-8.0); NEUTROPHILS # 5.6 10^3/uL (1.5-8.5); NEUTROPHILS % 54.0 % (36.0-66.0); PLATELET COUNT, AUTOMATED 187 10^3/uL (150-450)
[2025-02-25 07:09] LABS: C REACTIVE PROTEIN QUANTITATIV < 0.50 MG/DL (<1.0)
[2025-02-25 07:10] LABS: ALT/SGPT 20 U/L (7.0-40); AST/SGOT 20 U/L (<34); CALCIUM LEVEL 9.3 MG/DL (8.3-10.6); CARBON DIOXIDE LEVEL 37 MMOL/L (20-31); CHLORIDE LEVEL 94 MMOL/L (98-107); CREATININE FOR GFR 1.52 MG/DL (0.55-1.30); GLOMERULAR FILTRATION RATE 37.4 (>45); MAGNESIUM LEVEL 2.2 MG/DL (1.8-2.4); POTASSIUM SERUM 3.6 MMOL/L (3.5-5.1); SODIUM LEVEL 143 MMOL/L (136-145)
[2025-02-25 12:00] VITALS: BP 139/57; TEMP 97.3; O2SAT 96
[2025-02-25 16:30] VITALS: O2SAT 90
[2025-02-25 20:13] VITALS: BP 101/56; TEMP 97.7; O2SAT 92
[2025-02-26 03:40] VITALS: BP 105/56; TEMP 97; O2SAT 91; O2SAT 92
[2025-02-26 03:55] VITALS: O2SAT 93
[2025-02-26 05:43] VITALS: O2SAT 92
[2025-02-26 06:45] LABS: BASO # 0.0 10^3/uL (0.0-0.2); BASO % 0.3 % (0.0-1.0); EOS # 0.3 10^3/uL (0.0-0.5); EOS % 2.2 % (0.0-3.0); LYMPH # 3.4 10^3/uL (1.5-5.0); LYMPH % 29.6 % (24.0-44.0); MONO # 0.9 10^3/uL (0.0-0.8); MONO % 8.0 % (2.0-8.0); NEUTROPHILS # 6.6 10^3/uL (1.5-8.5); NEUTROPHILS % 58.1 % (36.0-66.0); PLATELET COUNT, AUTOMATED 178 10^3/uL (150-450)
[2025-02-26 07:11] LABS: ALT/SGPT 20.0 U/L (7.0-40); AST/SGOT 16.0 U/L (<34); C REACTIVE PROTEIN QUANTITATIV 0.53 MG/DL (<1.0); CALCIUM LEVEL 9.5 MG/DL (8.3-10.6); CARBON DIOXIDE LEVEL 35.0 MMOL/L (20-31); CHLORIDE LEVEL 95.0 MMOL/L (98-107); CREATININE FOR GFR 1.39 MG/DL (0.55-1.30); GLOMERULAR FILTRATION RATE 41.6 (>45); MAGNESIUM LEVEL 2.3 MG/DL (1.8-2.4); POTASSIUM SERUM 3.8 MMOL/L (3.5-5.1); SODIUM LEVEL 140.0 MMOL/L (136-145)
[2025-02-26] MEDS ORDERED: POTA-298 PO (09:17)
[2025-02-26] MEDS ORDERED: LASI20TA3 PO (09:23)
[2025-02-26 09:58] VITALS: BP 105/56; O2SAT 94
[2025-02-26 10:03] VITALS: BP 105/56
[2025-02-26] MEDS: FUROSEMIDE 20 MG TAB PO SCH (10:03)
[2025-02-26] MEDS ORDERED: POTASSIUM CHLORIDE 10MEQ SR TABLET PO SCH (21:00)
== END 2025-02-26 12:58 | disposition home or self-care (01) | DRG 291 ==
LOC: M ED 11:57 → M ED INP 16:09 → M PCU 20:41 → M MSPAV 02-21 18:07
PROVIDERS: ADMIT Internal Medicine; ATTEND Internal Medicine
DX: I13.0 Hypertensive heart and chronic kidney disease with heart failure and stage 1 through stage 4 chronic kidney disease, or unspecified chronic kidney disease (principal); I50.33 Acute on chronic diastolic (congestive) heart failure; E66.2 Morbid (severe) obesity with alveolar hypoventilation; N39.0 Urinary tract infection, site not specified; N17.9 Acute kidney failure, unspecified; E87.0 Hyperosmolality and hypernatremia; J20.6 Acute bronchitis due to rhinovirus; E78.5 Hyperlipidemia, unspecified; G40.909 Epilepsy, unspecified, not intractable, without status epilepticus; R68.0 Hypothermia, not associated with low environmental temperature; F79 Unspecified intellectual disabilities; N18.30 Chronic kidney disease, stage 3 unspecified; M17.0 Bilateral primary osteoarthritis of knee; E03.9 Hypothyroidism, unspecified; E55.9 Vitamin D deficiency, unspecified; R44.1 Visual hallucinations; D63.1 Anemia in chronic kidney disease; E87.6 Hypokalemia; S91.114A Laceration without foreign body of right lesser toe(s) without damage to nail, initial encounter; S92.422A Displaced fracture of distal phalanx of left great toe, initial encounter for closed fracture; W23.2XXA Caught, crushed, jammed or pinched between a moving and stationary object, initial encounter; Y92.9 Unspecified place or not applicable; Y93.9 Activity, unspecified; Y99.9 Unspecified external cause status; Z91.018 Allergy to other foods; Z79.51 Long term (current) use of inhaled steroids; Z79.2 Long term (current) use of antibiotics; Z79.899 Other long term (current) drug therapy; Z79.52 Long term (current) use of systemic steroids; Z79.810 Long term (current) use of selective estrogen receptor modulators (SERMs); Z96.652 Presence of left artificial knee joint; Z98.42 Cataract extraction status, left eye

== ENCOUNTER → 2025-02-27 | Outpatient (CLI) | payer MEDICARE, MEDICAID ==
[~2025-02-27] MED LIST changes: +JARD1TAB PO; +LASI20TA3 PO; +POTA-298 PO
== END ==
LOC: M SOG 07:23
PROVIDERS: ATTEND Orthopaedic Surgery
DX: M79.675 Pain in left toe(s) (principal); Z53.9 Procedure and treatment not carried out, unspecified reason

== ENCOUNTER → 2025-03-04 | Outpatient (CLI) | payer MEDICARE, MEDICAID | LOC: M SLEEP 20:00 | PROVIDERS: ATTEND Physician Assistant | DX: G47.33 Obstructive sleep apnea (adult) (pediatric) (principal); I50.20 Unspecified systolic (congestive) heart failure ==

== ENCOUNTER → 2025-03-05 | Outpatient (CLI) | payer MEDICARE, MEDICAID ==
[2025-03-05 07:32] LABS: CALCIUM LEVEL 10.6 MG/DL (8.3-10.6); CARBON DIOXIDE LEVEL 28.0 MMOL/L (20-31); CHLORIDE LEVEL 105.0 MMOL/L (98-107); CREATININE FOR GFR 1.67 MG/DL (0.55-1.30); GLOMERULAR FILTRATION RATE 33.4 (>45); POTASSIUM SERUM 5.2 MMOL/L (3.5-5.1); SODIUM LEVEL 144.0 MMOL/L (136-145)
== END ==
LOC: M LAB 06:20
PROVIDERS: ATTEND Family Medicine
DX: I11.9 Hypertensive heart disease without heart failure (principal)

== ENCOUNTER → 2025-03-09 | Outpatient (REF) | payer MEDICARE, MEDICAID ==
[2025-03-09 18:18] LABS: PLATELET COUNT, AUTOMATED 249 10^3/uL (150-450)
[2025-03-09 18:47] LABS: ALT/SGPT 24.0 U/L (7.0-40); AST/SGOT 20.0 U/L (<34); CALCIUM LEVEL 10.8 MG/DL (8.3-10.6); CARBON DIOXIDE LEVEL 31.0 MMOL/L (20-31); CHLORIDE LEVEL 100.0 MMOL/L (98-107); CREATININE FOR GFR 1.67 MG/DL (0.55-1.30); GLOMERULAR FILTRATION RATE 33.4 (>45); MAGNESIUM LEVEL 2.7 MG/DL (1.8-2.4); POTASSIUM SERUM 4.3 MMOL/L (3.5-5.1); SODIUM LEVEL 143.0 MMOL/L (136-145)
[2025-03-09 18:48] LABS: FREE T4 1.41 NG/DL (0.89-1.76)
== END ==
LOC: M SFHCADAM 15:12
DX: N17.9 Acute kidney failure, unspecified (principal); E03.9 Hypothyroidism, unspecified; I50.31 Acute diastolic (congestive) heart failure; D50.9 Iron deficiency anemia, unspecified

== ENCOUNTER 2025-03-23 10:34 | Outpatient (RCR) | payer MEDICARE, MEDICAID ==
[2025-04-01] MEDS ORDERED: LEVO75TA4 PO (15:33)
[2025-04-01] MEDS ORDERED: FURO40TA2 PO (15:33)
== END 2025-04-05 ==
LOC: M PT 10:34
PROVIDERS: ATTEND Family Medicine
DX: R60.0 Localized edema (principal)

== ENCOUNTER 2025-04-01 13:37 | Emergency (ER) | payer MEDICARE, MEDICAID ==
[2025-04-01 14:38] LABS: ABG BASE EXCESS 3.9 (-2.0-2.0); ABG HCO3 29.4 MMOL/L (22.0-26.0); ABG O2 SATURATION 95.6 % (95.0-99.0); ABG PARTIAL PRESSURE CO2 49.3 mmHg (35.0-45.0); ABG PARTIAL PRESSURE O2 81.7 mmHg (75.0-100.0); ABG STANDARD HCO3 28.0 MMOL/L. (22.0-26.0); ABG TOTAL CO2 31.0 MMOL/L (23.0-31.0); ABG pH (ARTERIAL) 7.394 UNITS (7.350-7.450)
[2025-04-01] MEDS: CYCLOPENTOLATE 1% OPHTH SOLN 2 ML BTL OU ONE (14:53)
[2025-04-01 14:57] LABS: PLATELET COUNT, AUTOMATED 168 10^3/uL (150-450)
[2025-04-01] MEDS ORDERED: ISOVUE-370 76% 100 ML VIAL As Ordered ONE (15:13)
[2025-04-01] MEDS ORDERED: FURO40TA2 PO (15:33)
[2025-04-01] MEDS ORDERED: LEVO75TA4 PO (15:33)
[2025-04-01] MEDS ORDERED: HOME MED LIST COMPLETE! XX SCH (15:35)
[2025-04-01 18:01] VITALS: BP 134/60; TEMP 97; O2SAT 94
== END 2025-04-01 19:12 | disposition home or self-care (01) ==
LOC: EDBD 13:37 → M ED 13:37
DX: H53.132 Sudden visual loss, left eye (principal); I50.22 Chronic systolic (congestive) heart failure; N18.30 Chronic kidney disease, stage 3 unspecified; I11.0 Hypertensive heart disease with heart failure; E78.5 Hyperlipidemia, unspecified; G40.909 Epilepsy, unspecified, not intractable, without status epilepticus; Z91.018 Allergy to other foods; Z79.1 Long term (current) use of non-steroidal anti-inflammatories (NSAID); Z79.51 Long term (current) use of inhaled steroids; Z79.899 Other long term (current) drug therapy; Z79.810 Long term (current) use of selective estrogen receptor modulators (SERMs)

== ENCOUNTER 2025-04-02 15:15 | Inpatient (IN) | payer MEDICARE, MEDICAID ==
[~2025-04-02] VITALS: Ht 149.9 cm; Wt 103.4 kg
[~2025-04-02 15:15] MED LIST changes: +FURO40TA2 PO; +LEVO75TA4 PO
[2025-04-02 16:41] LABS: BASO # 0.0 10^3/uL (0.0-0.2); BASO % 0.3 % (0.0-1.0); EOS # 0.1 10^3/uL (0.0-0.5); EOS % 1.9 % (0.0-3.0); LYMPH # 1.3 10^3/uL (1.5-5.0); LYMPH % 19.9 % (24.0-44.0); MONO # 0.5 10^3/uL (0.0-0.8); MONO % 7.1 % (2.0-8.0); NEUTROPHILS # 4.7 10^3/uL (1.5-8.5); NEUTROPHILS % 69.9 % (36.0-66.0); PLATELET COUNT, AUTOMATED 183 10^3/uL (150-450)
[2025-04-02 16:59] LABS: KETONE, URINE AUTO RFX NEGATIVE (NEGATIVE); LEUKOCYTE ESTERASE UR AUTO RFX NEGATIVE (NEGATIVE); MUCUS, URINE RFX SMALL (NEGATIVE); NITRITE, URINE AUTO RFX NEGATIVE (NEGATIVE); RBC, URINE AUTO RFX 32 /HPF (0-3); SQUAM EPITHELIAL CELL UR AURFX 1 /HPF (0-6)
[2025-04-02] MEDS: NS 500 ML IV ONE ×2 (16:59→18:00)
[2025-04-02 17:01] LABS: WBC, URINE AUTO RFX 18 /HPF (0-3)
[2025-04-02 17:07] LABS: CPK CREATINE PHOSPHOKINASE 76.0 U/L (34-145)
[2025-04-02 17:09] LABS: INR 0.93
[2025-04-02 17:38] LABS: ALT/SGPT 22.0 U/L (7.0-40); AST/SGOT 22.0 U/L (<34); CALCIUM LEVEL 9.4 MG/DL (8.3-10.6); CARBON DIOXIDE LEVEL 31.0 MMOL/L (20-31); CHLORIDE LEVEL 105.0 MMOL/L (98-107); CK-MB VALUE MASS 5.7 NG/ML (<3.6); CREATININE FOR GFR 1.45 MG/DL (0.55-1.30); FREE T4 1.24 NG/DL (0.89-1.76); GLOMERULAR FILTRATION RATE 39.5 (>45); MB/CK RELATIVE INDEX 7.5 (< OR =4); POTASSIUM SERUM 4.0 MMOL/L (3.5-5.1); SODIUM LEVEL 145.0 MMOL/L (136-145)
[2025-04-02 17:43] LABS: CK-MB VALUE MASS 5.4 NG/ML (<3.6)
[2025-04-02 17:44] LABS: CPK CREATINE PHOSPHOKINASE 68.0 U/L (34-145); MB/CK RELATIVE INDEX 7.94 (< OR =4)
[2025-04-02] MEDS ORDERED: D5W/0.45% SODIUM CHLORIDE 1,000 ML IV SCH (18:15)
[2025-04-02] MEDS ORDERED: HOME MED LIST COMPLETE! XX SCH (18:30)
[2025-04-02 18:50] LABS: C REACTIVE PROTEIN QUANTITATIV 1.21 MG/DL (<1.0); LDH LACTATE DEHYDROGENASE 168.0 U/L (120-246)
[2025-04-02 18:51] LABS: IRON (FE) 48.0 UG/DL (50-170)
[2025-04-02 18:53] LABS: PROLACTIN 6.99 NG/ML
[2025-04-02 18:54] LABS: CORTISOL PM 14.5 UG/DL (3.1-16.7)
[2025-04-02] MEDS ORDERED: ALBUTEROL 90 MCG/ACT 8 GM HFA INHALER INH PRN (18:55)
[2025-04-02] MEDS ORDERED: DEXTROSE 50% 50 ML SYRINGE IV PRN (19:00)
[2025-04-02] MEDS ORDERED: GLUCAGON INJ 1 MG VIAL SC PRN (19:00)
[2025-04-02] MEDS ORDERED: GLUCOSE 4 GM CHEW PO PRN (19:00)
[2025-04-02 19:24] VITALS: BP 113/55; TEMP 93.4; O2SAT 95
[2025-04-02] MEDS: BUDESONIDE 0.5 MG/2 ML INHALATION SUSPENSION NEB SCH (20:14)
[2025-04-02] MEDS: IPRATROPIUM 0.5 MG/ALBUTEROL 2.5 MG INH SOL UD 3 ML NEB PRN (20:14)
[2025-04-02] MEDS: lamoTRIgine 100 MG TAB PO SCH (20:29)
[2025-04-02] MEDS: ATORVASTATIN 10 MG TAB PO SCH (20:29)
[2025-04-02] MEDS: TOPIRAMATE 25 MG TAB PO SCH (20:30)
[2025-04-02] MEDS: ENOXAPARIN 30 MG/0.3 ML SYRINGE (J1650 PER 10MG) SC ONE (20:31)
[2025-04-02 20:45] LABS: VITAMIN B12 LEVEL 803 PG/ML (211-911)
[2025-04-02] MEDS: NS 0.45% 1,000 ML IV ONE (21:41)
[2025-04-02 21:45] VITALS: TEMP 97
[2025-04-02] MEDS: POLYVINYL ALCOHOL OPHTH SOLN 15ML (LIQUITEARS) OU SCH (22:39)
[2025-04-02] MEDS: LevoFLOXacin IV 750 MG in IV 1 EA IV SCH (22:39)
[2025-04-02] MEDS: NYSTATIN 100,000 UNITS/GM TOPICAL PWD 15 GM TOP SCH (22:40)
[2025-04-02 23:06] VITALS: BP 151/69; TEMP 97.5; O2SAT 97
[2025-04-03 01:30] LABS: CK-MB VALUE MASS 4.2 NG/ML (<3.6)
[2025-04-03 01:32] LABS: CPK CREATINE PHOSPHOKINASE 58.0 U/L (34-145); MB/CK RELATIVE INDEX 7.24 (< OR =4)
[2025-04-03] MEDS: ACETAMINOPHEN 325 MG TAB PO PRN (02:11)
[2025-04-03 03:58] VITALS: BP 134/66; TEMP 97.4; O2SAT 97
[2025-04-03 05:48] LABS: BASO # 0.0 10^3/uL (0.0-0.2); BASO % 0.3 % (0.0-1.0); EOS # 0.2 10^3/uL (0.0-0.5); EOS % 2.4 % (0.0-3.0); LYMPH # 1.4 10^3/uL (1.5-5.0); LYMPH % 23.1 % (24.0-44.0); MONO # 0.5 10^3/uL (0.0-0.8); MONO % 8.0 % (2.0-8.0); NEUTROPHILS # 4.1 10^3/uL (1.5-8.5); NEUTROPHILS % 65.6 % (36.0-66.0); PLATELET COUNT, AUTOMATED 167 10^3/uL (150-450)
[2025-04-03 06:16] LABS: CALCIUM LEVEL 8.8 MG/DL (8.3-10.6); CARBON DIOXIDE LEVEL 29.0 MMOL/L (20-31); CHLORIDE LEVEL 105.0 MMOL/L (98-107); CK-MB VALUE MASS 3.6 NG/ML (<3.6); CPK CREATINE PHOSPHOKINASE 53.0 U/L (34-145); CREATININE FOR GFR 1.43 MG/DL (0.55-1.30); GLOMERULAR FILTRATION RATE 40.2 (>45); MB/CK RELATIVE INDEX 6.79 (< OR =4); POTASSIUM SERUM 4.2 MMOL/L (3.5-5.1); SODIUM LEVEL 142.0 MMOL/L (136-145)
[2025-04-03 06:19] LABS: CORTISOL AM 4.4 UG/DL (4.3-22.4)
[2025-04-03] MEDS: LEVOTHYROXINE 75 MCG TABLET (0.075 MG) PO SCH (06:35)
[2025-04-03 06:50] VITALS: BP 123/57; TEMP 97; O2SAT 98
[2025-04-03] MEDS: INSULIN LISPRO (NovoLOG) PER UNIT SC SCH (07:30)
[2025-04-03] MEDS: ENOXAPARIN 30 MG/0.3 ML SYRINGE (J1650 PER 10MG) SC SCH (09:13)
[2025-04-03] MEDS: VITAMIN D 1,000 INTERNATIONAL UNITS TABLET PO SCH (09:14)
[2025-04-03] MEDS: ASCORBIC ACID 500 MG TAB PO SCH (09:14)
[2025-04-03] MEDS: MULTIVITAMINS/MINERALS THERAP 1 TAB PO SCH (09:14)
[2025-04-03] MEDS: DOCUSATE SODIUM 100 MG CAPSULE PO SCH (09:14)
[2025-04-03] MEDS: MORPHINE 4 MG/ML 1 ML VIAL IV ONE (12:10)
[2025-04-03 12:32] VITALS: BP 113/53; TEMP 98.1; O2SAT 90
[2025-04-03 15:36] VITALS: BP 144/65; TEMP 96; O2SAT 98
[2025-04-03] MEDS: FERROUS SULFATE 325 MG TAB PO SCH (16:13)
[2025-04-03 20:06] VITALS: BP 131/63; TEMP 98; O2SAT 93
[2025-04-04 04:21] VITALS: BP 132/62; TEMP 98; O2SAT 94
[2025-04-04 06:27] LABS: BASO # 0.0 10^3/uL (0.0-0.2); BASO % 0.4 % (0.0-1.0); EOS # 0.1 10^3/uL (0.0-0.5); EOS % 2.8 % (0.0-3.0); LYMPH # 1.4 10^3/uL (1.5-5.0); LYMPH % 27.3 % (24.0-44.0); MONO # 0.4 10^3/uL (0.0-0.8); MONO % 8.1 % (2.0-8.0); NEUTROPHILS # 3.0 10^3/uL (1.5-8.5); NEUTROPHILS % 60.0 % (36.0-66.0); PLATELET COUNT, AUTOMATED 170 10^3/uL (150-450)
[2025-04-04 06:51] LABS: CALCIUM LEVEL 8.8 MG/DL (8.3-10.6); CARBON DIOXIDE LEVEL 30.0 MMOL/L (20-31); CHLORIDE LEVEL 107.0 MMOL/L (98-107); CREATININE FOR GFR 1.34 MG/DL (0.55-1.30); GLOMERULAR FILTRATION RATE 43.5 (>45); POTASSIUM SERUM 4.1 MMOL/L (3.5-5.1); SODIUM LEVEL 144.0 MMOL/L (136-145)
[2025-04-04 12:00] VITALS: BP 108/68; TEMP 97.7; O2SAT 96
[2025-04-04 20:14] VITALS: BP 122/61; TEMP 98; O2SAT 95
[2025-04-05 05:08] VITALS: BP 139/69; TEMP 97.2; O2SAT 94
[2025-04-05 05:58] LABS: BASO # 0.0 10^3/uL (0.0-0.2); BASO % 0.6 % (0.0-1.0); EOS # 0.1 10^3/uL (0.0-0.5); EOS % 2.7 % (0.0-3.0); LYMPH # 1.6 10^3/uL (1.5-5.0); LYMPH % 30.7 % (24.0-44.0); MONO # 0.5 10^3/uL (0.0-0.8); MONO % 9.3 % (2.0-8.0); NEUTROPHILS # 2.9 10^3/uL (1.5-8.5); NEUTROPHILS % 55.7 % (36.0-66.0); PLATELET COUNT, AUTOMATED 173 10^3/uL (150-450)
[2025-04-05 06:27] LABS: CALCIUM LEVEL 8.8 MG/DL (8.3-10.6); CARBON DIOXIDE LEVEL 30.0 MMOL/L (20-31); CHLORIDE LEVEL 108.0 MMOL/L (98-107); CREATININE FOR GFR 1.25 MG/DL (0.55-1.30); GLOMERULAR FILTRATION RATE 47.2 (>45); POTASSIUM SERUM 4.1 MMOL/L (3.5-5.1); SODIUM LEVEL 147.0 MMOL/L (136-145)
[2025-04-05] MEDS: NS 0.45% 1,000 ML IV ONE (09:05)
[2025-04-05 12:00] VITALS: BP 171/85; TEMP 97.9; O2SAT 95
[2025-04-05 13:24] VITALS: BP 165/67
[2025-04-05 13:37] LABS: CALCIUM LEVEL 8.6 MG/DL (8.3-10.6); CARBON DIOXIDE LEVEL 29.0 MMOL/L (20-31); CHLORIDE LEVEL 107.0 MMOL/L (98-107); CREATININE FOR GFR 1.15 MG/DL (0.55-1.30); GLOMERULAR FILTRATION RATE 52.2 (>45); POTASSIUM SERUM 3.9 MMOL/L (3.5-5.1); SODIUM LEVEL 145.0 MMOL/L (136-145)
[2025-04-05] MEDS: amLODIPine 10 MG TAB PO ONE (14:03)
[2025-04-05] MEDS: NITROGLYCERIN 0.4 MG SUBL TABLET SL STA (17:26)
[2025-04-05] MEDS: FUROSEMIDE 40 MG/4 ML VIAL IV ONE (17:26)
[2025-04-05 18:44] LABS: CK-MB VALUE MASS 2.8 NG/ML (<3.6)
[2025-04-05 18:51] LABS: CALCIUM LEVEL 8.7 MG/DL (8.3-10.6); CARBON DIOXIDE LEVEL 28.0 MMOL/L (20-31); CHLORIDE LEVEL 107.0 MMOL/L (98-107); CREATININE FOR GFR 1.2 MG/DL (0.55-1.30); GLOMERULAR FILTRATION RATE 49.6 (>45); POTASSIUM SERUM 4.4 MMOL/L (3.5-5.1); SODIUM LEVEL 144.0 MMOL/L (136-145)
[2025-04-05 18:53] LABS: CPK CREATINE PHOSPHOKINASE 49.0 U/L (34-145); MB/CK RELATIVE INDEX 5.71 (< OR =4)
[2025-04-05 20:48] VITALS: BP 118/67; TEMP 97.9; O2SAT 91
[2025-04-06 01:06] LABS: CALCIUM LEVEL 8.8 MG/DL (8.3-10.6); CARBON DIOXIDE LEVEL 31.0 MMOL/L (20-31); CHLORIDE LEVEL 107.0 MMOL/L (98-107); CREATININE FOR GFR 1.36 MG/DL (0.55-1.30); GLOMERULAR FILTRATION RATE 42.7 (>45); POTASSIUM SERUM 4.2 MMOL/L (3.5-5.1); SODIUM LEVEL 147.0 MMOL/L (136-145)
[2025-04-06 05:26] VITALS: BP 169/79; TEMP 97.7; O2SAT 91
[2025-04-06 06:52] VITALS: BP 158/74
[2025-04-06 07:03] LABS: BASO # 0.0 10^3/uL (0.0-0.2); BASO % 0.5 % (0.0-1.0); EOS # 0.2 10^3/uL (0.0-0.5); EOS % 2.5 % (0.0-3.0); LYMPH # 1.2 10^3/uL (1.5-5.0); LYMPH % 18.2 % (24.0-44.0); MONO # 0.5 10^3/uL (0.0-0.8); MONO % 7.5 % (2.0-8.0); NEUTROPHILS # 4.5 10^3/uL (1.5-8.5); NEUTROPHILS % 70.5 % (36.0-66.0); PLATELET COUNT, AUTOMATED 179 10^3/uL (150-450)
[2025-04-06 07:28] LABS: CALCIUM LEVEL 8.8 MG/DL (8.3-10.6); CARBON DIOXIDE LEVEL 29.0 MMOL/L (20-31); CHLORIDE LEVEL 107.0 MMOL/L (98-107); CREATININE FOR GFR 1.3 MG/DL (0.55-1.30); GLOMERULAR FILTRATION RATE 45.1 (>45); POTASSIUM SERUM 4.1 MMOL/L (3.5-5.1); SODIUM LEVEL 147.0 MMOL/L (136-145)
[2025-04-06] MEDS: amLODIPine 10 MG TAB PO SCH (10:21)
[2025-04-06 11:55] VITALS: BP 166/79; TEMP 97.4; O2SAT 96
[2025-04-06 12:40] VITALS: BP 166/79; TEMP 97.4; O2SAT 96
[2025-04-06 13:08] LABS: CALCIUM LEVEL 8.7 MG/DL (8.3-10.6); CARBON DIOXIDE LEVEL 32.0 MMOL/L (20-31); CHLORIDE LEVEL 107.0 MMOL/L (98-107); CREATININE FOR GFR 1.26 MG/DL (0.55-1.30); GLOMERULAR FILTRATION RATE 46.8 (>45); POTASSIUM SERUM 3.8 MMOL/L (3.5-5.1); SODIUM LEVEL 148.0 MMOL/L (136-145)
[2025-04-06] MEDS: MOM 30 ML SUSPENSION UDC PO PRN (18:18)
[2025-04-06 19:36] LABS: CALCIUM LEVEL 8.7 MG/DL (8.3-10.6); CARBON DIOXIDE LEVEL 30.0 MMOL/L (20-31); CHLORIDE LEVEL 108.0 MMOL/L (98-107); CREATININE FOR GFR 1.26 MG/DL (0.55-1.30); GLOMERULAR FILTRATION RATE 46.8 (>45); POTASSIUM SERUM 4.3 MMOL/L (3.5-5.1); SODIUM LEVEL 147.0 MMOL/L (136-145)
[2025-04-06 19:57] LABS: TOPIRAMATE LEVEL 4.3 mcg/mL (see note)
[2025-04-06 20:55] VITALS: BP 161/72; TEMP 97.8; O2SAT 95
[2025-04-07 04:48] VITALS: BP 148/76; TEMP 97.9; O2SAT 93
[2025-04-07 06:51] LABS: BASO # 0.0 10^3/uL (0.0-0.2); BASO % 0.5 % (0.0-1.0); EOS # 0.2 10^3/uL (0.0-0.5); EOS % 2.4 % (0.0-3.0); LYMPH # 1.3 10^3/uL (1.5-5.0); LYMPH % 19.0 % (24.0-44.0); MONO # 0.5 10^3/uL (0.0-0.8); MONO % 7.1 % (2.0-8.0); NEUTROPHILS # 4.6 10^3/uL (1.5-8.5); NEUTROPHILS % 69.5 % (36.0-66.0); PLATELET COUNT, AUTOMATED 209 10^3/uL (150-450)
[2025-04-07 07:20] LABS: CALCIUM LEVEL 9.4 MG/DL (8.3-10.6); CARBON DIOXIDE LEVEL 29.0 MMOL/L (20-31); CHLORIDE LEVEL 106.0 MMOL/L (98-107); CREATININE FOR GFR 1.21 MG/DL (0.55-1.30); GLOMERULAR FILTRATION RATE 49.1 (>45); POTASSIUM SERUM 4.5 MMOL/L (3.5-5.1); SODIUM LEVEL 145.0 MMOL/L (136-145)
[2025-04-07 15:03] VITALS: BP 152/67; TEMP 98.2; O2SAT 91
[2025-04-07] MEDS: FUROSEMIDE 100 MG/10 ML VIAL IV ONE (17:17)
[2025-04-07 17:30] VITALS: BP 147/81; TEMP 97.7; O2SAT 95
[2025-04-07 20:27] VITALS: BP 151/79; TEMP 97.7; O2SAT 92
[2025-04-07 23:57] LABS: LYME TOTAL ANTIBODY CIA <= 0.90 Index (<=0.90)
[2025-04-08 04:13] VITALS: BP 155/67; TEMP 98.3; O2SAT 97
[2025-04-08 06:00] LABS: BASO # 0.0 10^3/uL (0.0-0.2); BASO % 0.3 % (0.0-1.0); EOS # 0.2 10^3/uL (0.0-0.5); EOS % 2.6 % (0.0-3.0); LYMPH # 1.6 10^3/uL (1.5-5.0); LYMPH % 26.0 % (24.0-44.0); MONO # 0.5 10^3/uL (0.0-0.8); MONO % 8.1 % (2.0-8.0); NEUTROPHILS # 3.8 10^3/uL (1.5-8.5); NEUTROPHILS % 62.2 % (36.0-66.0); PLATELET COUNT, AUTOMATED 191 10^3/uL (150-450)
[2025-04-08 06:21] LABS: CALCIUM LEVEL 8.8 MG/DL (8.3-10.6); CARBON DIOXIDE LEVEL 30.0 MMOL/L (20-31); CHLORIDE LEVEL 107.0 MMOL/L (98-107); CREATININE FOR GFR 1.43 MG/DL (0.55-1.30); GLOMERULAR FILTRATION RATE 40.2 (>45); POTASSIUM SERUM 4.3 MMOL/L (3.5-5.1); SODIUM LEVEL 147.0 MMOL/L (136-145)
[2025-04-08 12:00] VITALS: BP 129/58; TEMP 98.1; O2SAT 96
[2025-04-08] MEDS: FUROSEMIDE 40 MG/4 ML VIAL IV ONE (17:10)
[2025-04-08 21:10] VITALS: BP 129/57; TEMP 98; O2SAT 92
[2025-04-09 04:56] VITALS: BP 124/72; TEMP 97.9; O2SAT 93
[2025-04-09 07:01] LABS: BASO # 0.0 10^3/uL (0.0-0.2); BASO % 0.4 % (0.0-1.0); EOS # 0.2 10^3/uL (0.0-0.5); EOS % 2.3 % (0.0-3.0); LYMPH # 1.7 10^3/uL (1.5-5.0); LYMPH % 24.4 % (24.0-44.0); MONO # 0.5 10^3/uL (0.0-0.8); MONO % 7.3 % (2.0-8.0); NEUTROPHILS # 4.5 10^3/uL (1.5-8.5); NEUTROPHILS % 65.0 % (36.0-66.0); PLATELET COUNT, AUTOMATED 202 10^3/uL (150-450)
[2025-04-09 07:31] LABS: CALCIUM LEVEL 9.5 MG/DL (8.3-10.6); CARBON DIOXIDE LEVEL 32 MMOL/L (20-31); CHLORIDE LEVEL 102 MMOL/L (98-107); CREATININE FOR GFR 1.45 MG/DL (0.55-1.30); GLOMERULAR FILTRATION RATE 39.5 (>45); IRON (FE) 37 UG/DL (50-170); PERCENT SATURATION 12.1 % (13.2-45.0); POTASSIUM SERUM 4.1 MMOL/L (3.5-5.1); SODIUM LEVEL 142 MMOL/L (136-145)
[2025-04-09 07:33] LABS: VITAMIN B12 LEVEL 821 PG/ML (211-911)
[2025-04-09] MEDS: FUROSEMIDE 40 MG/4 ML VIAL IV SCH (11:00)
[2025-04-09] MEDS: D5W 1,000 ML IV SCH (11:59)
[2025-04-09 12:07] VITALS: BP 139/64; TEMP 96.7; O2SAT 95
[2025-04-09] MEDS: FERRIC CARBOXYMALTOSE INJ 750 MG, VIAL MATE ADAPTER 1 EACH in NS 100 ML IV ONE (13:08)
[2025-04-09 21:04] VITALS: BP 122/62; TEMP 97.6; O2SAT 94
[2025-04-10 03:24] VITALS: BP 123/60; TEMP 97; O2SAT 93
[2025-04-10 07:03] LABS: CALCIUM LEVEL 9.0 MG/DL (8.3-10.6); CARBON DIOXIDE LEVEL 32.0 MMOL/L (20-31); CHLORIDE LEVEL 100.0 MMOL/L (98-107); CREATININE FOR GFR 1.29 MG/DL (0.55-1.30); GLOMERULAR FILTRATION RATE 45.5 (>45); POTASSIUM SERUM 3.6 MMOL/L (3.5-5.1); SODIUM LEVEL 140.0 MMOL/L (136-145)
[2025-04-10] MEDS ORDERED: FUROSEMIDE 40 MG TAB PO SCH (09:00)
[2025-04-10] MEDS: FUROSEMIDE 40 MG TAB PO SCH (11:30)
[2025-04-10 12:09] VITALS: BP 111/54; TEMP 97.7; O2SAT 93
[2025-04-10 20:57] VITALS: BP 154/82; TEMP 97.5; O2SAT 93
[2025-04-11 03:19] VITALS: BP 139/72; TEMP 97.9; O2SAT 92
[2025-04-11 11:17] LABS: CALCIUM LEVEL 9.6 MG/DL (8.3-10.6); CARBON DIOXIDE LEVEL 30.0 MMOL/L (20-31); CHLORIDE LEVEL 103.0 MMOL/L (98-107); CREATININE FOR GFR 1.26 MG/DL (0.55-1.30); GLOMERULAR FILTRATION RATE 46.8 (>45); PHOSPHORUS LEVEL 3.4 MG/DL (2.4-5.1); POTASSIUM SERUM 3.6 MMOL/L (3.5-5.1); SODIUM LEVEL 143.0 MMOL/L (136-145)
[2025-04-11 12:00] VITALS: BP 105/54; TEMP 98.2; O2SAT 90
[2025-04-11 20:02] VITALS: BP 115/51; TEMP 98.3; O2SAT 91
[2025-04-11] MEDS: ENOXAPARIN 40 MG/0.4 ML SYRINGE (J1650 PER 10MG) SC SCH (20:49)
[2025-04-12] MEDS: ALBUTEROL SULFATE 2.5 MG/0.5 ML INH CONCENTRATE NEB SOLN NEB SCH (01:07)
[2025-04-12 04:11] VITALS: BP 142/63; TEMP 98.7; O2SAT 90
[2025-04-12] MEDS: guaiFENesin SYRUP 200 MG/10 ML UDC PO PRN (04:55)
[2025-04-12 12:00] VITALS: BP 115/54; TEMP 98.6; O2SAT 92
[2025-04-12 20:09] VITALS: BP 133/61; TEMP 97.2; O2SAT 91
[2025-04-13] VITALS (8 sets, daily range): BP systolic 119–130; BP diastolic 58–63; TEMP 97.7–98.5; O2SAT 88–95
[2025-04-13] MEDS: FUROSEMIDE 40 MG/4 ML VIAL IV ONE (10:34)
[2025-04-14 06:09] VITALS: BP 144/64; TEMP 98.6; O2SAT 92
[2025-04-14 06:49] LABS: BASO # 0.1 10^3/uL (0.0-0.2); BASO % 0.6 % (0.0-1.0); EOS # 0.0 10^3/uL (0.0-0.5); EOS % 0.1 % (0.0-3.0); LYMPH # 1.5 10^3/uL (1.5-5.0); LYMPH % 16.6 % (24.0-44.0); MONO # 0.7 10^3/uL (0.0-0.8); MONO % 7.6 % (2.0-8.0); NEUTROPHILS # 6.5 10^3/uL (1.5-8.5); NEUTROPHILS % 70.2 % (36.0-66.0); PLATELET COUNT, AUTOMATED 248 10^3/uL (150-450)
[2025-04-14 07:07] LABS: CALCIUM LEVEL 9.4 MG/DL (8.3-10.6); CARBON DIOXIDE LEVEL 32.0 MMOL/L (20-31); CHLORIDE LEVEL 104.0 MMOL/L (98-107); CREATININE FOR GFR 1.39 MG/DL (0.55-1.30); GLOMERULAR FILTRATION RATE 41.6 (>45); POTASSIUM SERUM 4.0 MMOL/L (3.5-5.1); SODIUM LEVEL 145.0 MMOL/L (136-145)
[2025-04-14 10:33] VITALS: O2SAT 90
[2025-04-14 11:32] VITALS: O2SAT 85
[2025-04-14 11:33] VITALS: O2SAT 89
[2025-04-14 11:48] VITALS: BP 137/61; TEMP 97.8; O2SAT 90
[2025-04-14 20:45] VITALS: BP 120/62; TEMP 98.7; O2SAT 94
[2025-04-15 04:14] VITALS: BP 159/78; TEMP 97.8; O2SAT 92
[2025-04-15 08:54] VITALS: BP 145/65
[2025-04-15 12:00] VITALS: BP 106/64; TEMP 98.5; O2SAT 91
[2025-04-15] MEDS ORDERED: PRED10TA2 PO (12:04)
== END 2025-04-15 14:26 | disposition home or self-care (01) | DRG 193 ==
LOC: M ED 15:15 → EDBD 15:15 → M ED INP 18:00 → M PCU 18:43 → M MSPAV 04-03 15:20
PROVIDERS: ADMIT General Practice; ATTEND Student in an Organized Health Care Education/Training Program
DX: J18.9 Pneumonia, unspecified organism (principal); G93.41 Metabolic encephalopathy; I50.32 Chronic diastolic (congestive) heart failure; I13.0 Hypertensive heart and chronic kidney disease with heart failure and stage 1 through stage 4 chronic kidney disease, or unspecified chronic kidney disease; N17.9 Acute kidney failure, unspecified; G47.33 Obstructive sleep apnea (adult) (pediatric); N18.30 Chronic kidney disease, stage 3 unspecified; E78.5 Hyperlipidemia, unspecified; E03.9 Hypothyroidism, unspecified; D64.9 Anemia, unspecified; I95.9 Hypotension, unspecified; G40.909 Epilepsy, unspecified, not intractable, without status epilepticus; M17.0 Bilateral primary osteoarthritis of knee; R00.1 Bradycardia, unspecified; R68.0 Hypothermia, not associated with low environmental temperature; F79 Unspecified intellectual disabilities; E66.01 Morbid (severe) obesity due to excess calories; Z96.652 Presence of left artificial knee joint; Z98.42 Cataract extraction status, left eye; R47.81 Slurred speech; R29.810 Facial weakness; S91.111A Laceration without foreign body of right great toe without damage to nail, initial encounter; X58.XXXA Exposure to other specified factors, initial encounter; Y92.9 Unspecified place or not applicable; Z79.891 Long term (current) use of opiate analgesic; Z79.890 Hormone replacement therapy; Z79.899 Other long term (current) drug therapy; Z91.018 Allergy to other foods

== ENCOUNTER → 2025-04-24 | Outpatient (CLI) | payer MEDICARE, MEDICAID | LOC: M SOG 08:07 | PROVIDERS: ATTEND Physician Assistant | DX: S92.422B Displaced fracture of distal phalanx of left great toe, initial encounter for open fracture (principal); Z53.9 Procedure and treatment not carried out, unspecified reason ==